=== PATIENT | female | born 1960 | race Caucasian/White ===

== ENCOUNTER 2017-11-26 16:00 | Outpatient (RCR) | payer BC, SELFPAY ==
--- NOTE | 2017-11-13 09:02 | PTTR_ITS ---
DATE: 11/13/17 SUBJECTIVE: Pt states that she is considerably better but still feels weak at the ankle but she is at the point now that she is getting back on her feet. OBJECTIVE: Manual therapy: ([id number]). Pt placed in the supine position receiving gentle stretching to the gastroc with the knee extended and she is then placed and distracted through the talo crural joint with distraction while the ankle is held in 10* of plantar flexion. She is mobilized with medial and lateral glides of the calcaneus on the fixed talus to supply sub talar joint motion and then talar glides on a fixed ankle mortis with anterior and posterior direction. IASTM allowing myofascial release techniques through the posterior tibialis and also completed and Rock Taping supporting medial longitudinal arch as well as posterior tibialis facilitation. She tolerates tx well. Direct treatment time: 30 minutes Total treatment time: 30 minutes
--- NOTE | 2017-11-26 16:00 | PTTR_ITS ---
DATE: 11/26/17 SUBJECTIVE: Patient states she is progressively getting better. Still feels mildly weak through the ankle on the L side. Manual therapy: ([id number]). Patient placed in supine receiving gentle traction through the talocrural joint while held in 10 degrees of plantar flexion. She is then oscillated with light talar glides both posterior/ anterior to achieve greater articular motion to the talocrural joint. The subtalar joint then mobilized with medial and lateral glides of the calcaneus on a fixed talus, light stretching through the gastroc soleus complex with tension through the Achilles and light stretching of the posterior tibialis also performed. She is then taped with kinesiotape application supporting medial, longitudinal arch and facilitation technique through the posterior tibialis. Patient tolerates treatment well. Direct treatment time: 20 mins Total treatment time: 20 mins DIONY/dl
== END 2017-12-07 23:59 | disposition home or self-care (01) ==
LOC: PT 16:00
PROVIDERS: PCP Family Medicine; Referring Provider Orthopaedic Surgery Foot and Ankle Surgery; Visit Provider Orthopaedic Surgery Foot and Ankle Surgery
DX: M76.822 Posterior tibial tendinitis, left leg (principal)
CPT/HCPCS: 97140

== ENCOUNTER 2018-06-06 08:24 | Outpatient (REF) | payer BC, SELFPAY ==
[2018-06-06 12:16] LABS: Mean Corp. HGB Concentration 31.7 g/dL (32.0-36.0); Mean Corpuscular Hemoglobin 28.3 pg (27.0-33.0); Mean Corpuscular Volume 89.1 fL (80-95); Mean Platelet Volume 10.2 fL (8.0-11.0); Platelet Count 185 x1000/uL (130-400); RBC Distribution Width 13.7 % (11.7-14.6); White Blood Cell Count 5.19 k/cumm (4.4-10.8)
[2018-06-06 12:35] LABS: ALT 17 U/L (12-78); AST 16 U/L (15-37); Albumin 3.5 g/dL (3.4-5.0); Alkaline Phosphatase 90 U/L (46-116); Anion Gap 6.2 mmol/L (3-11); BUN 21 mg/dL (7-18); Bilirubin, Total 0.4 mg/dL (0.2-1.0); CO2 31.8 mmol/L (21.0-32.0); CREATININE 0.87 mg/dL (0.55-1.02); Calcium 8.6 mg/dL (8.5-10.1); Chloride 106 mmol/L (98-107); Glucose 104 mg/dL (70-100); Sodium 144 mmol/L (136-145); TSH (W/Ref FT4) 1.94 uIU/mL (0.358-3.74); Total Protein 6.4 g/dL (6.4-8.2)
[2018-06-06 13:27] LABS: Hemoglobin A1C 6.2 % (4.5-6.2)
== END 2018-06-06 08:44 ==
LOC: NCHCN 08:24
PROVIDERS: PCP Family Medicine; Visit Provider Family Medicine
DX: I10 Essential (primary) hypertension (principal); R73.01 Impaired fasting glucose; E66.9 Obesity, unspecified
CPT/HCPCS: 80053; 85027; 83036; 84443

== ENCOUNTER 2019-01-07 00:40 | Outpatient (CLI) | payer BC, SELFPAY ==
--- NOTE | 2019-01-07 08:29 | DI.MAMMO_ITS ---
EXAM: MG MAMMO SCREENING CLINICAL HISTORY: SCREENING, Z12.31, PREVENTATIVE HEALTH CARE, Z00.00. TECHNIQUE: Bilateral full field digital CC and MLO mammographic images were obtained with 3D tomosyn thesis and utilizing computer aided detection (CAD). COMPARISON: There are multiple priors with the most recent from 12/19/2016. FINDINGS: Masses/Architectural Distortion: None seen. Microcalcifications: No suspicious pleomorphic-type are seen. IMPRESSION: 1. No significant interval change with no specific features of malignancy noted. 2. Unless there is more urgent need, screening mammography is recommended, as per [employer] guidelines. ACR BI-RAD Category- 1 Negative Breast Density - Category B - Scattered areas of fibroglandular density A negative radiographic report should not delay biopsy if a dominant or clinically suspicious mass is present. Up to ten percent of cancers are not identified on mammography. A negative report may reinforce clinical impression. Adenosis and dense breasts may obscure an underlying neoplasm. False positive reports average 6 to 10%.
== END 2019-01-07 01:00 ==
PROVIDERS: PCP Family Medicine; Visit Provider Family Medicine
DX: Z00.00 Encounter for general adult medical examination without abnormal findings (principal); Z12.31 Encounter for screening mammogram for malignant neoplasm of breast
CPT/HCPCS: 77063; 77067

== ENCOUNTER 2019-04-14 13:02 | Outpatient (REF) | payer BC, SELFPAY ==
[2019-04-14 14:17] LABS: Anion Gap 8.4 mmol/L (3-11); BUN 29 mg/dL (7-18); CO2 29.6 mmol/L (21.0-32.0); CREATININE 0.85 mg/dL (0.55-1.02); Calcium 8.4 mg/dL (8.5-10.1); Chloride 106 mmol/L (98-107); Glucose 100 mg/dL (74-106); Potassium 3.6 mmol/L (3.5-5.1); Sodium 144 mmol/L (136-145)
== END 2019-04-14 13:22 ==
LOC: NCHCN 13:02
PROVIDERS: PCP Family Medicine; Visit Provider Family Medicine
DX: I10 Essential (primary) hypertension (principal)
CPT/HCPCS: 80048

== ENCOUNTER 2019-06-04 13:47 | Outpatient (REF) | payer BC, SELFPAY ==
[2019-06-04 13:27] LABS: Anion Gap 8.3 mmol/L (3-11); BUN 26 mg/dL (7-18); CO2 29.7 mmol/L (21.0-32.0); CREATININE 0.95 mg/dL (0.55-1.02); Calcium 8.6 mg/dL (8.5-10.1); Chloride 107 mmol/L (98-107); Glucose 96 mg/dL (74-106); Potassium 4.9 mmol/L (3.5-5.1); Sodium 145 mmol/L (136-145)
[2019-06-04 13:37] LABS: Hemoglobin A1C 5.8 % (3.8-5.6)
== END 2019-06-04 14:07 ==
LOC: NCHCN 13:47
PROVIDERS: PCP Family Medicine; Visit Provider Family Medicine
DX: I10 Essential (primary) hypertension (principal); R73.03 Prediabetes
CPT/HCPCS: 80048; 83036

== ENCOUNTER 2019-09-08 01:30 | Outpatient (CLI) | payer BC, SELFPAY ==
--- NOTE | 2019-09-08 10:30 | DI.NM_ITS ---
APPROVED REPORT Exam: Exercise Treadmill Patient Location: Out-Patient Room/Bed: Stress Nurse: Brigitte Quiñones RN BMI: 43.26 Baseline Rhythm: Sinus Bradycardia, Borderline low voltage, extremity leads. Indications: Patient reports occasional left chest discomfort, heart palpitations, difficulty catchin g her breath, left neck pressure???not all at once???for the past year. Patient is a poor historian. Medical History Medical History: GERD, Restless legs, Obesity. Cardiac Medications: Lisinopril, Hydrochlorothiazide. Allergies: Penicillin. Previous Cardiac Procedures: None Pretest Chest Pain Characteristics: None Exercise History: Sedentary Physical Disabilities: None Lung Sounds: Clear to auscultation Heart Sounds: Regular Stress Test Details Test: Exercise stress testing was performed using a Marino protocol. Nuclear Acquisition: Rest Tc-99m/Stress Tc-99m 1 day Rest Isotope: Tc-99m Sestamibi. Dose: 12.2 Date: 09/08/2019 Injection Time: 1045 Stress Isotope: Tc-99m Sestamibi. Dose: 37.1 Date: 09/08/2019 Injection Time: 1305 HR Resting HR Supine: 52 bpm Max Heart Rate (APMHR): 161 bpm Resting HR Standin bpm Target HR (85% APMHR): 136 bpm Max HR Achieved: 158 bpm % of APMHR: 98 HR response to stress: Normal HR response to stress BP Resting BP Supine: 128/70 mmHg Resting BP Standin/86 mmHg Max BP: 160/88 mmHg BP response to stress: Normal blood pressure response to stress. ECG Resting ECG: Sinus Bradycardia, Borderline low voltage, extremity leads. Ectopy: Occasional PVC's with maximal exercise and immediate recovery. Rare PAC's Stress ECG: Sinus Tachycardia ST Change: No significant St segment changes noted. Clinical Reason for Termination: Fatigue, Dyspnea Stress Symptoms: None reported per patient. Exercise duration: 6 min12 sec Highest Stage Reached: Stage 3: 3.4 mph at 14% grade. Exercise capacity: 7.32 METs Functional Capacity: Average Capacity Stress ECG Conclusion 1. The patient exercised on the Marino protocol and completed a workload of 7.32 METS, limited by farhad herrera. There were no symptoms to suggest angina 2. Normal heart rate and blood pressure response to exercise. Patient achieved 98% of predicted hear t rate for age 3. Electrocardiographically the test was negative for myocardial ischemia 4. PVCs were noted at end exercise 5. Vinson treadmill score is 6, low probability Stress Test Summary STAGE Time (mins) Speed (mph) Grade (%) HR BP SYMPTOMS METS Supine 52 128/70 Standing 67 120/86 1 3 1.7 10 115 140/80 4.6 2 6 2.5 12 154 7 1 min recovery 146 160/88 3 min recovery 83 160/74 6 min recovery 81 132/70 9 min recovery 75 112/68 MPI Conclusion Normal myocardial perfusion without evidence of ischemia or infarction Calculated ejection fraction was 52% Radiologist Interpretation Radiologist agrees with Paint Sprayer Sandblaster's Interpretation. Radiologist Interpretation by: Amado Hammonds MD Interpretation Date/Time: 09/09/2019 13:18:32
== END 2019-09-08 01:50 ==
PROVIDERS: PCP Family Medicine; Visit Provider Nurse Practitioner Family
DX: R07.89 Other chest pain (principal); R00.2 Palpitations; R00.1 Bradycardia, unspecified; R53.83 Other fatigue; K21.9 Gastro-esophageal reflux disease without esophagitis
CPT/HCPCS: 78452; 93017

== ENCOUNTER 2019-09-08 08:15 | Outpatient (CLI) | payer BC, SELFPAY ==
[2019-09-09 18:24] LABS: COVID-19 RT-PCR UVMMC Result Negative (Negative)
== END 2019-09-08 08:35 ==
PROVIDERS: PCP Family Medicine; Visit Provider Family Medicine
DX: Z11.59 Encounter for screening for other viral diseases (principal)
CPT/HCPCS: U0003

== ENCOUNTER 2019-09-09 02:27 | Outpatient (CLI) | payer BC, SELFPAY ==
--- NOTE | 2019-09-09 | DI.US_ITS ---
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 Estimated ejection fraction is 55 to 60%. There are no segmental wall motion abnormalities. There is stage I diastolic dysfunction There is no chamber enlargement Aortic valve is mildly sclerotic without stenosis. There is trace aortic regurgitation Mitral valve is structurally normal. There is mild mitral regurgitation The pulmonic and tricuspid valves are structurally normal. There is trace physiologic pulmonic and t ricuspid regurgitation Wall motion Left Ventricle The left ventricle is normal size. The left ventricular systolic function is normal. The left ventric ular ejection fraction is within the normal range. There is normal left ventricular wall thickness. T here is normal LV segmental wall motion. Transmitral Doppler flow pattern suggests impaired LV relaxa tion. There is no ventricular septal defect visualized. LVEF is 58%. Right Ventricle The right ventricle is normal size. The right ventricular systolic function is normal. The RVSP is 24 .1 mmHg. Atria The left atrium size is normal. The right atrium size is normal. The interatrial septum is intact wit h no evidence for an atrial septal defect. Aortic Valve The Aortic valve is mildly sclerotic There is no aortic valvular stenosis. Trace aortic regurgitation . Mitral Valve The mitral valve is normal in structure. No evidence of mitral valve stenosis. Mild mitral regurgitat ion. Tricuspid Valve The tricuspid valve is normal in structure. There is no tricuspid valve stenosis. Trace tricuspid reg urgitation. Pulmonic Valve The pulmonary valve is normal in structure. There is no pulmonic valvular stenosis. Trace pulmonic re gurgitation. Great Vessels The aortic root is normal in size. The ascending aorta is normal in size. Ascending aorta is not well visualized. IVC is normal in size and collapses >50% with inspiration. Pericardium There is no pericardial effusion. There is no pleural effusion. 2D Dimensions IVSD d PLAX 0.92 cm F: 0.6-1.0 LV Vol A2C d MOD 80.6 mL LVPW d PLAX 0.92 cm F: 0.6 - 1.0 LV Vol A4C d MOD 105.4 mL LVID d PLAX 5.11 cm F: 3.8 - 5.2 LA vol/ BSA A2C s A-L 26.5 mL/m2 LVDs 3.40 cm F: 2.2 - 3.5 LA vol/ BSA A4C s A-L 34.8 mL/m2 Ao Root d 2.11 cm F: 2.7 - 3.3 LA Vol/ BSA Biplane s A-L 32.5 mL/m2 RA Area A4C 17.10 cm2 LA Area A4C s MOD 23.80 cm2 RA Vol/ BSA A4C s A-L 21.6 mL/m2 LA Area A2C s MOD 19.37 cm2 Ao Asc Diam d 3.09 cm F: 2.3 - 3.1 LV EF A4C MOD 59.1 % LV EF Teichholz 61.7 % LV EF A2C MOD 58.5 % LVEF (Tuttle's) 58.29 % F: 54 - 74 LV EF Biplane MOD 58.3 % LV Volume 67.98 mL F: 46 - 106 SV 54.58 mL LV Volume Index 30.76 mL/m2 F: 29 - 61 SV Index 24.68 mL/m2 LV Vol Biplane MOD 93.6 mL FS 33.35 % M-Mode TAPSE 2.75 cm (M/F) >1.7 LV Diastology MV E' medial 0.060 (>0.07 m/s) E/A Ratio 1.2 LV E/e MED 10.80 (<14) MV E Vmax 0.65 (0.4-1.3 m/s) MV E' lateral 0.089 (>0.1 m/s) MV A Vmax 0.55 (0.4-1.3 m/s) LV E/e LAT 7.25 (<14) MV E/A Ratio 1.11 MV E/E' medial 10.82 MV E/E' lateral 7.25 Aortic Valve LVOT Area 2.20 cm2 AoV Area Vmax 1.96 cm2 LVOT Vmax 1.44 m/s AoV Area/ BSA (Vmax) 0.88 cm2/m2 LVOT Mean Fran. 0.87 m/s GRACY Mean Fran. 1.68 cm2 LVOT Peak Grad 8.3 mmHg GRACY Mean Fran. Index 0.76 cm2/m2 LVOT Mean Grad 3.7 mmHg AR DT 3019 msec LVOT VTI 0.335 m AR PHT 876 msec LVOT Diam s 1.65 cm AoV Vmax 1.61 m/s Velocity Ratio 0.89 AoV Mean Fran. 1.14 m/s AoV Peak Grad 10.4 mmHg LVOT SV 73.65 mL AoV Mean Grad 5.7 mmHg AoV VTI 0.353 m AoV Area VTI 2.09 cm2 AoV Area/ BSA (VTI) 0.94 cm/m2 Mitral Valve MV DT 265 (160-240 msec) MV PHT 77 msec MV Area PHT 2.86 cm2 Pulmonary Valve PV Vmax 1.04 (0.5-1.5 m/s) RVOT Peak Gr. 1.96 mmHg PV Peak Grad 4.3 mmHg RVOT Mean Gr. 1.05 mmHg PV Mean Grad 2.1 mmHg RVOT VTI 0.186 m PV VTI 0.252 m RVOT Vmax 0.70 m/s Tricuspid Valve TR Peak Grad 21.1 mmHg TR Vmax 2.30 m/s RA Pressure 3.00 mmHg RVSP (TR) 24.1 mmHg
== END 2019-09-09 02:47 ==
PROVIDERS: PCP Family Medicine; Visit Provider Nurse Practitioner Family
DX: R06.09 Other forms of dyspnea (principal); R07.9 Chest pain, unspecified; R00.2 Palpitations; I35.8 Other nonrheumatic aortic valve disorders; I34.0 Nonrheumatic mitral (valve) insufficiency
CPT/HCPCS: 93306

== ENCOUNTER 2019-09-10 03:17 | Outpatient (CLI) | payer BC, SELFPAY ==
--- NOTE | 2019-09-11 12:29 | W.PFT ---
Date of service: 09/10/19 Time of Service: 10:40 Pulmonary Function Test Result Requesting Provider Dr. Porter Interpretation Spirometry: Shows no evidence of obstructive airways disease, no bronchodilator response Lung Volumes: No evidence of restriction Diffusion Capacity: Normal Airway Pressure: Normal Impression Normal pulmonary function study clinical correlation recommended Clinical Correlation therefore is recommended.
== END 2019-09-10 03:37 ==
PROVIDERS: PCP Family Medicine; Visit Provider Family Medicine
DX: R06.09 Other forms of dyspnea (principal)
CPT/HCPCS: 94060; 94726; 94729

== ENCOUNTER 2020-01-15 11:20 | Outpatient (REF) | payer BC, SELFPAY ==
[2020-01-15 19:13] LABS: Anion Gap 7.1 mmol/L (3-11); BUN 24 mg/dL (7-18); CO2 28.9 mmol/L (21.0-32.0); CREATININE 0.92 mg/dL (0.55-1.02); Calcium 8.6 mg/dL (8.5-10.1); Chloride 108 mmol/L (98-107); Glucose 90 mg/dL (74-106); Potassium 4.4 mmol/L (3.5-5.1); Sodium 144 mmol/L (136-145)
== END 2020-01-15 11:40 ==
LOC: NCHCN 11:20
PROVIDERS: PCP Family Medicine; Visit Provider Family Medicine
DX: I10 Essential (primary) hypertension (principal); R73.03 Prediabetes
CPT/HCPCS: 80048; 83036

== ENCOUNTER 2020-09-10 03:49 | Outpatient (CLI) | payer OTHER, SELFPAY ==
--- NOTE | 2020-09-10 | DI.MAMMO_ITS ---
Exam(s) MAMMO SCREENING EXAM: MAMMO SCREENING CLINICAL HISTORY: SCREENING, Z12.31 TECHNIQUE: Bilateral full field digital CC and MLO mammographic images were obtained with 3D tomosyn thesis and utilizing computer aided detection (CAD). COMPARISON: Available for comparison. FINDINGS: Masses/Architectural Distortion: None seen. Microcalcifications: No suspicious pleomorphic-type are seen. Skin Thickening/Nipple Retraction: None. IMPRESSION: 1. No significant interval change with no specific features of malignancy noted. 2. Unless there is more urgent need, screening mammography is recommended, as per [employer] guidelines. BI-RADS Category 1 - Negative Breast Density - Category B - Scattered areas of fibroglandular density Breast density category C or D implies that the patient has dense breast tissue. Dense breast tissue is very common and is not abnormal but dense breast tissue can make it harder to find cancer on a ma mmogram. Also, dense breast tissue may increase their breast cancer risk. This information about the result of the mammogram report was provided to the patient to raise their awareness. Use this report when you speak with the patient about their risks for breast cancer, which includes their family hist ory. At that time, you may recommend for more screening tests (Ultrasound or MRI) as they might be us eful based on their risk. A negative radiographic report should not delay biopsy if a dominant or clinically suspicious mass is present. Up to ten percent of cancers are not identified on mammography. A negative report may reinforce clinical impression. Adenosis and dense breasts may obscure an underlying neoplasm. False positive reports average 6 to 10%. Patient will receive a letter notifying them of these results.
== END 2020-09-10 04:09 ==
PROVIDERS: PCP Family Medicine; Visit Provider Family Medicine
DX: Z12.31 Encounter for screening mammogram for malignant neoplasm of breast (principal)
CPT/HCPCS: 77063; 77067

== ENCOUNTER 2020-11-01 09:26 | Outpatient (CLI) | payer OTHER, SELFPAY ==
--- NOTE | 2020-11-01 08:45 | DI.RAD_ITS ---
Exam(s) XR KNEE RT 3V AP,LAT,BAO EXAM: XR KNEE RT 3V AP,LAT,BAO CLINICAL HISTORY: knee pain. TECHNIQUE: 2D digital imaging was performed. COMPARISON: CR XR KNEE LT 3V AP,LAT,BAO from 11/01/2020 FINDINGS: There is no evidence of fracture or joint effusion. There are advanced tricompartmental degenerative changes. [id number] in the lateral compartment. Marginal osteophytes off all compartments. No o sseous lesions. Bone density normal. IMPRESSION: DATA REPOSITORY: RADIATION DOSE DELIVERED:
--- NOTE | 2020-11-01 08:45 | DI.RAD_ITS ---
Exam(s) XR KNEE LT 3V AP,LAT,BAO EXAM: XR KNEE LT 3V AP,LAT,BAO CLINICAL HISTORY: knee pain. TECHNIQUE: 2D digital imaging was performed. COMPARISON: No exams were available for comparison FINDINGS: There is a left knee prosthesis comprised of long stem femoral component and longer than conventional stem tibial component there is some a centric position of distal stem component of the tibial compon ent with thumb hypertrophic cortical changes in the lateral aspect of the tibia at this level of the proximal diaphysis. In addition, there is a suggestion of possible loosening of the tibial component prosthesis over its lateral aspect. IMPRESSION: DATA REPOSITORY: RADIATION DOSE DELIVERED:
== END 2020-11-01 09:27 | disposition home or self-care (01) ==
LOC: DIORS 09:26
PROVIDERS: PCP Family Medicine; Referring Provider Family Medicine; Visit Provider Physician Assistant
DX: M25.561 Pain in right knee (principal); M25.562 Pain in left knee
CPT/HCPCS: 73562

== ENCOUNTER 2021-03-11 09:46 | Outpatient (REF) | payer OTHER, SELFPAY ==
[2021-03-11 14:52] LABS: Anion Gap 9.6 mmol/L (3-11); BUN 21 mg/dL (7-18); CO2 29.4 mmol/L (21.0-32.0); Calcium 8.7 mg/dL (8.5-10.1); Chloride 103 mmol/L (98-107); Estimated GFR 56.56 (mL/min/1.73m2); Glucose 98 mg/dL (74-106); Potassium 4.1 mmol/L (3.5-5.1); Sodium 142 mmol/L (136-145)
[2021-03-11 15:13] LABS: Hemoglobin A1C 5.9 % (<5.7)
== END 2021-03-11 09:47 | disposition home or self-care (01) ==
LOC: NCHCN 09:46
PROVIDERS: PCP Family Medicine; Visit Provider Family Medicine
DX: I10 Essential (primary) hypertension (principal); R73.03 Prediabetes
CPT/HCPCS: 80048; 83036

== ENCOUNTER 2021-07-11 18:41 | Outpatient (REF) | payer OTHER, SELFPAY ==
[2021-07-11 16:53] LABS: Hemoglobin A1C 6.1 % (<5.7)
[2021-07-11 17:13] LABS: Calculated LDL 120 mg/dL (<100); Cholesterol 202 mg/dL (<200); HDL Cholesterol 50 mg/dL (40-60); Triglyceride 160 mg/dL (<150)
== END 2021-07-11 18:42 | disposition home or self-care (01) ==
LOC: NCHCN 18:41
PROVIDERS: PCP Family Medicine; Visit Provider Family Medicine
DX: R73.03 Prediabetes (principal); Z13.220 Encounter for screening for lipoid disorders
CPT/HCPCS: 80061; 83036

== ENCOUNTER 2021-08-23 15:36 | Outpatient (CLI) | payer OTHER, SELFPAY ==
[2021-08-23 12:14] LABS: CREATININE 0.9 mg/dL (0.55-1.02)
== END 2021-08-23 15:37 | disposition home or self-care (01) ==
LOC: LBO 15:39
PROVIDERS: PCP Family Medicine; Visit Provider Family Medicine
DX: Z13.89 Encounter for screening for other disorder (principal)
CPT/HCPCS: 36415; 82565

== ENCOUNTER 2021-11-18 00:56 | Outpatient (CLI) | payer OTHER, SELFPAY ==
[2021-11-18 11:51] LABS: Source Nasal/Nares
[2021-11-18 14:19] LABS: COVID-19 PCR Negative (Negative)
== END 2021-11-18 00:57 | disposition home or self-care (01) ==
LOC: LBO 00:56
PROVIDERS: PCP Family Medicine; Visit Provider Surgery
DX: Z20.822 Contact with and (suspected) exposure to COVID-19 (principal); Z01.818 Encounter for other preprocedural examination
CPT/HCPCS: 87635

== ENCOUNTER 2021-11-21 06:05 | Day surgery (SDC) | payer OTHER, SELFPAY ==
--- NOTE | 2021-11-21 06:13 | W.COLOREPORT ---
Colonoscopy Report Date of procedure: 11/21/21 Pre-op diagnosis general: Colon Cancer Screening Post-op diagnosis procedure note: other (polyps and diverticulosis) Procedure: Colonoscopy with polypectomy Surgeon: Monica Kelsey Anesthesia Type: General:No Airway Estimated blood loss (mL): 3 Pathology: other (cending polyp and sigmoid polyps x4) Complications: None Disposition: same day Indications: Mrs Hunt is a pleasant 61 year old here to discuss a screening colonoscopy. She has no family hx. She does have a hx of polyps in 2018.? Risks, benefits and complications have been reviewed. Complications include but are not limited to bleeding, pain, perforation, missed small lesion/polyp, sore throat, aspiration and adverse reaction to the medications. Questions were entertained and answered to their satisfaction and they wished to proceed. No guarantees were given or implied. Prep: Miralax/Dulcolax Procedure Start Time: 07:29 Procedure End Time: 07:56 Retraction Time: 14 minutes Findings: 5 small polyps most likely hyperplastic Procedure Description: After informed consent was obtained the patient was taken to the procedure room and placed in a left decubitous position. Monitors were applied and a time out was done. The patients name, date of , procedure, allergies to medications and metal in their body was reviewed. The patient was then sedated. Once sedated and comfortable a rectal exam was done. External exam was normal. Internal exam revealed a normal sphincter tone and no palpable masses. The scope was then introduced and retro-flexed. No internal hemorrhoids, polyps or masses were identified on retro-flexion. The scope was then advanced to the cecum without difficulty. The ileocecal vlave and appendiceal orifice were identified. The prep was good. The scope was then slowly retracted over 14 minutes back into the rectum. Polyps were removed with cold forceps in the ascending colon x1 and sigmoid colon x4. There was moderate sigmoid diverticulosis noted. The scope was removed and the patient was woken up and taken back to Same day surgery in stable condition. The patient tolerated the procedure well and there were no immediate complications.
--- NOTE | 2021-11-21 06:14 | W.PM.DSUDISC ---
Discharge Plan Disposition Patient Disposition: HOME Condition: Good Discharge Details Reason For Visit: colonoscopy Attending Provider: Monica Kelsey Primary Care Provider: Tea Porter Home Meds and New Rx's Prescriptions: Continued darifenacin 7.5 mg tablet extended release 24 hr 7.5 mg PO DAILY lisinopril 10 mg tablet 10 mg PO DAILY metformin 500 mg tablet 1,000 mg PO DAILY ropinirole 1 mg tablet 1 mg PO QHS Rx Instructions: administer 1-3 hours before bedtime vitamin B complex [B Complex-Vitamin B12] Tablet 1 tab PO DAILY omega 6-zmu-nuj-fish oil [Fish Oil] 300-1,000 mg capsule 1 cap PO DAILY Digestive Advantage Advanced 10 billion cell capsule 10 cell PO DAILY multivitamin Tablet 1 tab PO DAILY ascorbic acid (vitamin C) 500 mg tablet 500 mg PO DAILY calcium carbonate [Calcium 500] 500 mg calcium (1,250 mg) tablet,chewable 500 mg PO DAILY omeprazole 20 mg capsule,delayed release(DR/EC) 20 mg PO DAILY hydrochlorothiazide 25 MG tablet 25 mg PO DAILY ibuprofen [Advil] 200 MG tablet 200 mg PO PRN PRN cholecalciferol (vitamin D3) [Vitamin D3] 1,000 UNIT tablet,chewable 1,000 unit PO DAILY acetaminophen [Mapap Extra Strength] 500 MG tablet 1,000 mg PO PRN PRN Discontinued polyethylene glycol 3350 17 gram/dose powder 17 g PO ONCE Qty: 238 0RF Rx Instructions: To be taken as directed by prescriber's office for colonoscopy prep. bisacodyl [Dulcolax (bisacodyl)] 5 mg tablet,delayed release (DR/EC) 5 mg PO ONCE Qty: 4 0RF Rx Instructions: Take according to provider's instructions for colonoscopy prep. Discharge Instructions Instructions: Diverticulosis (DC), Colorectal Polyps (DC) Additional Instructions: Findings: 5 small polyps, most likely benign moderate diverticulosis Follow up: will depend on final pathology Please call if you develop: fevers >101.5 Nausea or Vomiting Abdominal pain that is not transient Rectal bleeding that is more then a tbsp A hard abdomen and inability to pass gas DAY SURGERY UNIT POST ENDOSCOPY INSTRUCTIONS Instructions for everyone who is given Anesthesia: For your safety, please do the following for the next 24 Hours: a. Do not drive or operate dangerous equipment b. Do not drink alcohol beverages or use any recreational drugs for the first 24 hours or while taking pain medications. The medications in your body may have a reaction that can be dangerous. c. Do not make any important decisions or sign any important papers 1. Generally there are no restrictions on your activity after a day or so has gone by, but you may feel a bit fatigued for a few days. 2. After you arrive home you may have a light meal and return to a normal diet as you can tolerate it without feeling sick to your stomach. 3. After surgery, you may feel pain or discomfort. This should be only transient, but if it persists please contact your doctor. 4. If there are any questions regarding the findings of your procedure, please feel free to contact your doctor. 6. If you are unable to contact your doctor with a problem, contact the hospital at [phone]. 7. Continue all your regular medications unless directed otherwise. I understand the above instructions and have no questions. Signature of Patient or Responsible Adult Escort Date/Time Name of Responsible Adult Escort Signature of Nurse Date/Time Activity:: Activity as Tolerated Diet:: high fiber diet Discharge Orders Discharge Orders: Discharge Order (Routine); Ordered 11/21/21 Ordered By: Monica Kelsey
[2021-11-21 06:16] VITALS: BP 148/93; PULSE 66; RESP 19; TEMP 36.5; O2SAT 100
[2021-11-21] MEDS: Lactated Ringers 1,000 ML 80 ML IV (06:41)
--- NOTE | 2021-11-21 07:14 | W.ANESPRE ---
General Info Date of Service Date Performed: 11/21/21 Height: 5 ft 4 in Weight: 118.3 kg Body Mass Index (BMI): 44.7 Surgical Procedure: Operation Date: 11/21/21 07:35 Proposed Procedure Side Surgeon hector Kelsey MD Meds Allergies and Home Medications Allergies Allergy/AdvReac Type Severity Reaction Status Date / Time Penicillins Allergy Intermediate Hives Verified 11/21/21 06:26 topiramate [From Topamax] AdvReac Unknown Per pt. Verified 11/21/21 06:26 states made me depressed Home Medication Medication Instructions Recorded hydrochlorothiazide 25 mg tablet 25 mg PO DAILY 07/31/12 cholecalciferol (vitamin D3) 25 1,000 unit PO DAILY 08/02/12 mcg (1,000 unit) chewable tablet (Vitamin D3) ibuprofen 200 mg tablet (Advil) 200 mg PO PRN PRN 08/02/12 acetaminophen 500 mg tablet (Mapap 1,000 mg PO PRN PRN 11/19/17 Extra Strength) L.acidoph, paracasei,B. lactis 10 10 cell PO DAILY 07/19/21 billion cell capsule (Digestive Advantage Advanced Probiotic) ascorbic acid (vitamin C) 500 mg 500 mg PO DAILY 07/19/21 tablet calcium carbonate 500 mg calcium 500 mg PO DAILY 07/19/21 (1,250 mg) chewable tablet (Calcium 500) lisinopril 10 mg tablet 10 mg PO DAILY 07/19/21 metformin 500 mg tablet 1,000 mg PO DAILY 07/19/21 multivitamin 1 tab PO DAILY 07/19/21 omega 1-vsr-vxv-fish oil 300 1 cap PO DAILY 07/19/21 mg-1,000 mg capsule (Fish Oil) omeprazole 20 mg capsule,delayed 20 mg PO DAILY 07/19/21 release ropinirole 1 mg tablet 1 mg PO QHS 07/19/21 vitamin B complex (B 1 tab PO DAILY 07/19/21 Complex-Vitamin B12 tablet) darifenacin 7.5 mg tablet,extended 7.5 mg PO DAILY 10/28/21 release 24 hr bisacodyl 5 mg tablet,delayed 5 mg PO ONCE #4 tabs 11/04/21 release (Dulcolax (bisacodyl)) polyethylene glycol 3350 17 17 g PO ONCE #238 grams 07/29/22 gram/dose oral powder Current Visit Medications: Current Medications Generic Name Dose Route Start Last Admin Trade Name Twanq PRN Reason Stop Dose Admin Hyoscyamine Sulfate 0.125 mg 11/21/21 06:14 Hyoscyamine 0.125 Mg Sl/Oral/Chew SL DIRECTED PRN Ringer's Solution 1,000 mls @ 80 mls/hr 11/21/21 06:00 11/21/21 06:41 IV 12/18/21 23:59 80 mls/hr INFUSION ELENA Administration IV Miscellaneous Supplies 1 each 11/21/21 06:00 Iv Access IV 12/18/21 23:59 DIRECTED ELENA Ondansetron HCl 4 mg 11/21/21 06:14 Ondansetron 4 Mg/2 Ml Vial IVP Q4H PRN PRN Nausea / Vomiting Sodium Chloride 0 ml 11/21/21 06:00 Normal Saline Flush 10 Ml Syr IV 12/18/21 23:59 PRN PRN Sodium Chloride 0 ml 11/21/21 06:00 Normal Saline 10 Ml Vial IJ 12/18/21 23:59 DIRECTED PRN Sterile Water 0 ml 11/21/21 06:00 Water,Injection,Sterile 10 Ml Vial IJ 12/18/21 23:59 DIRECTED PRN PFSH Active Problems Active Problems: Problem Status Onset Code Screening for colon cancer Z12.11 Serrated adenoma of colon D12.6 Hyperplastic colon polyp K63.5 Medical History Medical History Adenomatous colon polyp Depression Dyspareunia Ganglion cyst Generalized anxiety disorder GERD (gastroesophageal reflux disease) H/O tinnitus History of revision of total replacement of left knee joint (2004) HTN (hypertension) 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 Obesity Palpitations Panic attack Prediabetes Primary osteoarthritis of right knee Urge incontinence Varicose veins of both lower extremities Vitamin D deficiency Surgical History Surgical History (Updated 11/21/21 @ 06:26 by Twila Brooks RN) History of total knee arthroplasty Hx of foot surgery Tobacco Smoking/Tobacco Use Status: Former Tobacco Use Alcohol Alcohol Intake: current Alcohol intake frequency: holidays/special occasions only Substance Use Substance use: Never Substance use type: does not use Vital Signs and Lab Results Vital Signs Most Recent Vital Signs in EMR: Most Recent Vital Signs Temp Pulse Resp BP Pulse Ox 36.5 C 66 19 148/93 H 100 11/21/21 06:16 11/21/21 06:16 11/21/21 06:16 11/21/21 06:16 11/21/21 06:16 Lab Results Blood Type / Crossmatch: No Data to Display Complete Blood Count: No Data to Display Complete Metabolic Panel: No Data to Display Liver Function Panel: No Data to Display Coagulation Panel: No Data to Display Cardiac Panel: No Data to Display Arterial Blood Gas: No Data to Display Venous Blood Gas: No Data to Display Pancreas Panel: No Data to Display Thyroid Panel: No Data to Display Infectious Disease: Coronavirus (COVID-19)(PCR) Negative (Negative) 11/18/21 08:00 Coronavirus 2019 Source Nasal/Nares 11/18/21 08:00 Blood Cultures: No Data to Display Toxicology Panel: No Data to Display Imaging and Studies Imaging and Studies Study information below may be from another EMR and interpreted by another provider. Please see original notes in EMR for more complete details. Stress Test Summary: Stress ECG Conclusion 1. The patient exercised on the [place] protocol and completed a workload of 7.32 METS, limited by fatigue. There were no symptoms to suggest angina 2. Normal heart rate and blood pressure response to exercise. Patient achieved 98% of predicted heart rate for age 3. Electrocardiographically the test was negative for myocardial ischemia 4. PVCs were noted at end exercise 5. Vinson treadmill score is 6, low probability 09/08/19 Echocardiogram Summary: Conclusion Normal left ventricular wall thickness and chamber size. Estimated ejection fraction is 55 to 60%. There are no segmental wall motion abnormalities. There is stage I diastolic dysfunction There is no chamber enlargement Aortic valve is mildly sclerotic without stenosis. There is trace aortic regurgitation Mitral valve is structurally normal. There is mild mitral regurgitation The pulmonic and tricuspid valves are structurally normal. There is trace physiologic pulmonic and tricuspid regurgitation 09/09/19 Pulmonary Function Summary: Impression Normal pulmonary function study clinical correlation recommended Clinical Correlation therefore is recommended. 09/11/19 Anesthesia Assessment and Plan Anesthesia History Personal History: No History of Anesthesia Complications Family History: No Family History of Anesthesia Complications Exercise Tolerance Exercise Tolerance: Metabolic Equivalents>4 Pertinent Negatives Pertinent Negatives: No Symptoms of GERD (Controlled with meds), No Major Cardiovascular Symptoms or Complaints, No Major Pulmonary Symptoms or Complaints and No History of CVA/TIA Cardiac & Pulmonary Exam Cardiac Exam: Normal S1/S2 Heart Sounds Pulmonary Exam: Clear Bilateral Breath Sounds Implantable Cardiac Device Does patient have a Pacemaker or an ICD?: No Airway Exam Known Difficult Airway: No Mallampati Class: 2 Mouth Opening: Normal (> 3cm) Thyromental Distance: Greater than 3 cm Neck Range of Motion: Full ROM Neck Circumference: Thick Teeth Condition: Normal Dentition ASA Classification ASA Score: ASA 3 Emergency Case?: No NPO Status NPO Status: NPO Clears >2 hours, Solids >8 hours Anesthesia Plan Resuscitation Status: Full Code Anesthesia Technique: General Anesthesia Airway Planned: Natural Airway Monitors Used: Standard Monitors
[2021-11-21 07:19] VITALS: BMI 44.7
--- NOTE | 2021-11-21 08:00 | BOWEL_PTH ---
PATIENT: Trang Hunt LOC: [facility] U#:[id number] AGE/SX: 61/F ROOM: RE11/21/[address]: Monica Kelsey MD : 1960 BED: DIS: 11/21/2021 SPEC #: [id number] RECD: 11/21/21 08:40 STATUS: MC REQ #: [id number] NINA: 11/21/21 08:[address]: Monica Kelsey DEPT: Surgical Specimen RECD BY: Francine Palma ENTERED: 11/21/21 08:42 SP TYPE: Bowel OTHR DR: Tea Porter Tissues: 1 - BIOPSY BOWEL 2 - BIOPSY BOWEL Procedures: GROSS AND MICRO LEVEL 4 Comments: [id number]
[2021-11-21 08:06] VITALS: BP 111/79; PULSE 62; RESP 17; TEMP 36.5; O2SAT 97
--- NOTE | 2021-11-21 08:23 | W.ANESPOSTOP ---
Postoperative Evaluation Date, Time and Location Date Performed: 11/21/21 Time Performed: 08:07 Patient Location: Day Surgery Unit Vital Signs Most Recent Imported Vital Signs: Most Recent Vital Signs Temp Pulse Resp BP Pulse Ox 36.5 C 62 17 111/79 97 11/21/21 08:06 11/21/21 08:06 11/21/21 08:06 11/21/21 08:06 11/21/21 08:06 Pain Score Most Recent Pain Score: Most Recent Pain Score Pain Level 0 11/21/21 06:16 Assessment Mental Status: Awake (Alert & Oriented to Patient Baseline) Airway and Respiratory Function: Patent airway with normal (patient baseline) respiratory exam Cardiovascular Function: Hemodynamically Stable Hydration Status: Adequately Hydrated Nausea & Vomiting: No Nausea or Vomiting Pain: Pt. Denies Any Pain Peripheral Nerve Block: Patient did not receive a nerve block
[2021-11-21 08:28] VITALS: BP 127/75; PULSE 61; RESP 18; TEMP 36.7; O2SAT 96
== END 2021-11-21 09:01 | disposition home or self-care (01) ==
PROVIDERS: PCP Family Medicine; Visit Provider Surgery
PROC: 0DJD8ZZ Inspection of Lower Intestinal Tract, Via Natural or Artificial Opening Endoscopic (ICD-10-PCS; CPT 45378; principal; 2021-11-21 07:30)
DX: Z12.11 Encounter for screening for malignant neoplasm of colon (principal); K21.9 Gastro-esophageal reflux disease without esophagitis; I10 Essential (primary) hypertension; K63.5 Polyp of colon; K57.30 Diverticulosis of large intestine without perforation or abscess without bleeding
CPT/HCPCS: 45380; 88305

== ENCOUNTER 2021-12-28 14:22 | Outpatient (CLI) | payer OTHER, SELFPAY ==
--- NOTE | 2021-12-28 14:15 | DI.RAD_ITS ---
Exam(s) XR SHOULDER RT COMPLETE 2+V EXAM: XR SHOULDER RT COMPLETE 2+V CLINICAL HISTORY: right shoulder pain. TECHNIQUE: 2D digital imaging was performed. COMPARISON: No exams were available for comparison FINDINGS: Two views: No evidence of fracture or dislocation nor joint space narrowing. Small osteophyte noted on the infe rior articular surface of the humeral head. No osteophytes on the osseous glenoid side. Subacromial space height is lower normal. No calcifications therein. Degenerative subarticular cysts are seen in the greater tuberosity on the lateral aspect of the humeral head. IMPRESSION: Degenerative changes as described above. DATA REPOSITORY: RADIATION DOSE DELIVERED:
== END 2021-12-28 14:23 | disposition home or self-care (01) ==
LOC: DIORS 14:22
PROVIDERS: PCP Family Medicine; Referring Provider Family Medicine; Visit Provider Student in an Organized Health Care Education/Training Program
DX: M25.511 Pain in right shoulder (principal); M25.711 Osteophyte, right shoulder; M85.611 Other cyst of bone, right shoulder
CPT/HCPCS: 73030

== ENCOUNTER → 2022-01-20 00:58 | Outpatient (CLI) | payer OTHER, SELFPAY ==
--- NOTE | 2022-01-20 06:45 | DI.MRI_ITS ---
Exam(s) MR UPPER JOINT RT WO EXAM: MR UPPER JOINT RT WO CLINICAL HISTORY: traumatic pain weakness S46.011A STRAIN RT SHOULDER. TECHNIQUE: Multiplanar multisequence MRI was performed. COMPARISON: CR XR SHOULDER RT COMPLETE 2+V from 12/28/2021 FINDINGS: BONES: There is no fracture or contusion pattern. Postsurgical changes are seen in the humeral head. JOINTS: Degenerative changes are seen at the acromioclavicular joint. There is superior subluxation of the humeral head relative to the glenoid. TENDONS: Supraspinatus: There is a complete tear of the supraspinatus tendon with retraction almost to the lev el of the glenohumeral joint. Infraspinatus: There is a full-thickness tear of the infraspinatus tendon. Retraction of the tendon is seen almost to the level of the glenohumeral joint. Subscapularis: Unremarkable. Teres Minor: Unremarkable. Biceps and Ballantine: Unremarkable. MUSCLES: Moderately severe fatty atrophy of both the supraspinatus and infraspinatus muscles is noted . The teres minor and subscapularis muscles are within normal limits. GLENOID LABRUM: Unremarkable on this noncontrast examination. SOFT TISSUES: Unremarkable. LIGAMENTS: Unremarkable. OTHER: There is fluid seen in the subacromial subdeltoid bursa consistent with a rotator cuff tear. IMPRESSION: 1. Complete tear of the supraspinatus tendon and a large full-thickness tear of the infraspinatus ten don with retraction almost to the level of the glenohumeral joint. 2. Moderately severe fatty atrophy of both the infraspinatus and supraspinatus muscles. 3. Degenerative changes of the AC joint. Postsurgical changes in the shoulder. 4. Superior subluxation of the humeral head consistent with a rotator cuff tear. DATA REPOSITORY:
== END ==
PROVIDERS: PCP Family Medicine; Visit Provider Student in an Organized Health Care Education/Training Program
DX: S46.011A Strain of muscle(s) and tendon(s) of the rotator cuff of right shoulder, initial encounter (principal); M19.011 Primary osteoarthritis, right shoulder; X58.XXXA Exposure to other specified factors, initial encounter
CPT/HCPCS: 73221

== ENCOUNTER 2022-06-01 09:19 | Outpatient (CLI) | payer OTHER, SELFPAY ==
--- NOTE | 2022-06-01 09:00 | DI.RAD_ITS ---
Exam(s) XR KNEE RT 1V XR STANDING ALIGNMENT EXAM: XR STANDING ALIGNMENT and XR knee RT 1 V CLINICAL HISTORY: TKA planning. TECHNIQUE: 2D digital imaging was performed. Five images were obtained. COMPARISON: CR XR KNEE LT 3V AP,LAT,BAO from 11/01/2020 CR XR KNEE RT 3V AP,LAT,BAO from 11/01/2020 FINDINGS: BONES: The hips are well maintained. There again seen findings of a left total knee replacement whic h appears unremarkable. Moderately severe degenerative changes are seen in the right knee with trico mpartment joint space narrowing and periarticular spurring. No joint effusion is seen. The ankles a re well maintained.There is no significant leg length discrepancy. SOFT TISSUE: Normal. IMPRESSION: Moderately severe osteoarthritis of the right knee. DATA REPOSITORY: RADIATION DOSE DELIVERED:
== END 2022-06-01 09:20 | disposition home or self-care (01) ==
LOC: DIORS 09:19
PROVIDERS: PCP Family Medicine; Referring Provider Family Medicine; Visit Provider Physician Assistant
DX: M25.561 Pain in right knee (principal); M17.11 Unilateral primary osteoarthritis, right knee; Z96.652 Presence of left artificial knee joint
CPT/HCPCS: 73560; 77073

== ENCOUNTER 2022-10-05 04:01 | Outpatient (CLI) | payer OTHER, SELFPAY ==
[2022-10-05 14:26] LABS: HCT 39.8 % (36.0-46.0); HGB 12.8 g/dL (11.2-15.7); MCH 28.6 pg (27.0-33.0); MCHC 32.2 % (32.0-36.0); MCV 89 fL (80-95); Platelet Count 196 10^3/uL (130-400); RBC 4.48 10^6/uL (3.93-5.22); RDW 13.2 % (11.7-14.6); RDW-SD 43.2 fL; WBC 5.89 10^3/uL (4.4-10.8)
[2022-10-05 15:24] LABS: Anion Gap 8.6 mmol/L (3-11); BUN 18 mg/dL (7-18); CO2 29.4 mmol/L (21.0-32.0); CREATININE 0.9 mg/dL (0.55-1.02); Calcium 8.7 mg/dL (8.5-10.1); Chloride 103 mmol/L (98-107); Estimated GFR 72.28 (mL/min/1.73m2); Glucose 93 mg/dL (74-106); Potassium 3.8 mmol/L (3.5-5.1); Sodium 141 mmol/L (136-145)
== END 2022-10-05 04:02 | disposition home or self-care (01) ==
LOC: LBO 04:01
PROVIDERS: PCP Family Medicine; Visit Provider Student in an Organized Health Care Education/Training Program
DX: M17.11 Unilateral primary osteoarthritis, right knee (principal); Z01.818 Encounter for other preprocedural examination
CPT/HCPCS: 36415; 80048; 85027

== ENCOUNTER 2022-10-18 14:37 | Observation (INO) | payer OTHER, SELFPAY ==
[2022-10-18] VITALS (22 sets, daily range): BP systolic 88–147; BP diastolic 54–95; PULSE 59–89; RESP 12–20; TEMP 35.6–36.7; O2SAT 93–100; BMI 43.9
[2022-10-18] MEDS: Gabapentin 300 MG CAP PO ×2 (07:09→21:46)
[2022-10-18] MEDS: Acetaminophen 500 MG TAB 1000 MG PO ×2 (07:09→20:50)
[2022-10-18] MEDS: Celecoxib 200 MG CAP 400 MG PO (07:09)
[2022-10-18] MEDS: Lactated Ringers 1,000 ML 80 ML IV ×2 (07:23→09:42)
--- NOTE | 2022-10-18 07:33 | W.ANESPRE ---
General Info Date of Service Date Performed: 10/18/22 Height: 5 ft 4 in Weight: 116.2 kg Body Mass Index (BMI): 43.9 Surgical Procedure: Operation Date: 10/18/22 08:40 Proposed Procedure Side Surgeon p Knee Total Arthroplasty, Cementless CR Right Cj Stiles MD Actual Procedure Side Surgeon p Knee Total Arthroplasty, Cementless CR Right Cj Stiles MD Pre-Op Diagnosis Post-Op Diagnosis OSTEOARTHRITIS RIGHT KNEE Meds Allergies and Home Medications Allergies Allergy/AdvReac Type Severity Reaction Status Date / Time Penicillins Allergy Intermediate Hives Verified 10/18/22 07:04 topiramate [From Topamax] AdvReac Unknown Per pt. Verified 10/18/22 07:04 states made me depressed Home Medication Medication Instructions Recorded hydrochlorothiazide 25 mg tablet 25 mg PO DAILY 07/31/12 cholecalciferol (vitamin D3) 25 1,000 unit PO DAILY 08/02/12 mcg (1,000 unit) chewable tablet (Vitamin D3) L.acidoph, paracasei,B. lactis 10 10 cell PO DAILY 07/19/21 billion cell capsule (Digestive Advantage Advanced Probiotic) ascorbic acid (vitamin C) 500 mg 500 mg PO DAILY 07/19/21 tablet calcium carbonate 500 mg calcium 500 mg PO DAILY 07/19/21 (1,250 mg) chewable tablet (Calcium 500) lisinopril 10 mg tablet 10 mg PO DAILY 07/19/21 metformin 500 mg tablet 1,000 mg PO DAILY 07/19/21 multivitamin 1 tab PO DAILY 07/19/21 omega 2-uml-luw-fish oil 300 1 cap PO DAILY 07/19/21 mg-1,000 mg capsule (Fish Oil) omeprazole 20 mg capsule,delayed 20 mg PO DAILY 07/19/21 release ropinirole 1 mg tablet 1 mg PO QHS 07/19/21 vitamin B complex (B 1 tab PO DAILY 07/19/21 Complex-Vitamin B12 tablet) darifenacin 7.5 mg tablet,extended 15 mg PO DAILY 11/22/21 release 24 hr folic acid 1 mg tablet 1 mg PO DAILY 11/22/21 Current Visit Medications: Current Medications Generic Name Dose Route Start Last Admin Trade Name Freq PRN Reason Stop Dose Admin Acetaminophen 1,000 mg 10/18/22 06:00 10/18/22 07:09 Acetaminophen 500 Mg Tab PO 11/17/22 05:59 1,000 mg PREOP ELENA Administration Celecoxib 400 mg 10/18/22 06:00 10/18/22 07:09 Celecoxib 200 Mg Cap PO 11/17/22 05:59 400 mg PREOP ELENA Administration Gabapentin 300 mg 10/18/22 06:00 10/18/22 07:09 Gabapentin 300 Mg Cap PO 11/17/22 05:59 300 mg PREOP ELENA Administration Tranexamic Acid 1,000 mg/ 60 mls @ 360 mls/hr 10/18/22 06:00 Sodium Chloride IVPB 11/17/22 05:59 PREOP ELENA Ringer's Solution 1,000 mls @ 80 mls/hr 10/18/22 06:00 10/18/22 07:23 IV 11/16/22 23:59 80 mls/hr INFUSION ELENA Administration Cefazolin Sodium 3,000 mg/ 100 mls @ 200 mls/hr 10/18/22 06:00 Sodium Chloride IVPB 10/18/22 18:00 PREOP ELENA IV Miscellaneous Supplies 1 each 10/18/22 06:00 Iv Access IV 11/16/22 23:59 DIRECTED ELENA Sodium Chloride 0 ml 10/18/22 06:00 Normal Saline Flush 10 Ml Syr IV 11/16/22 23:59 PRN PRN Sodium Chloride 0 ml 10/18/22 06:00 Normal Saline 10 Ml Vial IJ 11/16/22 23:59 DIRECTED PRN Sterile Water 0 ml 10/18/22 06:00 Water,Injection,Sterile 10 Ml Vial IJ 11/16/22 23:59 DIRECTED PRN PFSH Active Problems Active Problems: Problem Status Onset Code Primary osteoarthritis of right knee M17.11 Screening for colon cancer Z12.11 Serrated adenoma of colon D12.6 Hyperplastic colon polyp K63.5 Rotator cuff tear arthropathy of right shoulder M75.101, M12.811 Medical History Medical History Adenomatous colon polyp Depression Dyspareunia Ganglion cyst Generalized anxiety disorder GERD (gastroesophageal reflux disease) H/O tinnitus History of revision of total replacement of left knee joint (2004) HTN (hypertension) 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 Obesity Palpitations Panic attack Prediabetes Thyroid nodule Traumatic tear of right rotator cuff Urge incontinence Varicose veins of both lower extremities Vitamin D deficiency Surgical History Surgical History History of colonoscopy (~11/2021) History of total knee arthroplasty (L) Hx of foot surgery Tobacco Smoking/Tobacco Use Status: Former Tobacco Use Alcohol Alcohol Intake: current Alcohol intake frequency: holidays/special occasions only Substance Use Substance use: Never Substance use type: does not use Vital Signs and Lab Results Vital Signs Most Recent Vital Signs in EMR: Most Recent Vital Signs Temp Pulse Resp BP Pulse Ox 36.7 C 68 16 131/95 H 97 10/18/22 06:54 10/18/22 06:54 10/18/22 06:54 10/18/22 06:54 10/18/22 06:54 Lab Results Blood Type / Crossmatch: No Data to Display Complete Blood Count: White Blood Count 5.89 10^3/uL (4.4-10.8) 10/05/22 14:20 Red Blood Count 4.48 10^6/uL (3.93-5.22) 10/05/22 14:20 Hemoglobin 12.8 g/dL (11.2-15.7) 10/05/22 14:20 Hematocrit 39.8 % (36.0-46.0) 10/05/22 14:20 Platelet Count 196 10^3/uL (130-400) 10/05/22 14:20 Complete Metabolic Panel: Sodium 141 mmol/L (136-145) 10/05/22 14:20 Potassium 3.8 mmol/L (3.5-5.1) 10/05/22 14:20 Chloride 103 mmol/L (98-107) 10/05/22 14:20 Carbon Dioxide 29.4 mmol/L (21.0-32.0) 10/05/22 14:20 BUN 18 mg/dL (7-18) 10/05/22 14:20 Creatinine 0.9 mg/dL (0.55-1.02) 10/05/22 14:20 Est GFR (CKD-EPI 2020) 72.28 (mL/min/1.73m2) 10/05/22 14:20 Calcium 8.7 mg/dL (8.5-10.1) 10/05/22 14:20 Glucose 93 mg/dL (74-106) 10/05/22 14:20 Liver Function Panel: No Data to Display Coagulation Panel: No Data to Display Cardiac Panel: No Data to Display Arterial Blood Gas: No Data to Display Venous Blood Gas: No Data to Display Pancreas Panel: No Data to Display Thyroid Panel: No Data to Display Infectious Disease: No Data to Display Blood Cultures: No Data to Display Toxicology Panel: No Data to Display Imaging and Studies Imaging and Studies Study information below may be from another EMR and interpreted by another provider. Please see original notes in EMR for more complete details. Stress Test Summary: Stress ECG Conclusion 1. The patient exercised on the [place] protocol and completed a workload of 7.32 METS, limited by fatigue. There were no symptoms to suggest angina 2. Normal heart rate and blood pressure response to exercise. Patient achieved 98% of predicted heart rate for age 3. Electrocardiographically the test was negative for myocardial ischemia 4. PVCs were noted at end exercise 5. Vinson treadmill score is 6, low probability 09/08/19 Echocardiogram Summary: Conclusion Normal left ventricular wall thickness and chamber size. Estimated ejection fraction is 55 to 60%. There are no segmental wall motion abnormalities. There is stage I diastolic dysfunction There is no chamber enlargement Aortic valve is mildly sclerotic without stenosis. There is trace aortic regurgitation Mitral valve is structurally normal. There is mild mitral regurgitation The pulmonic and tricuspid valves are structurally normal. There is trace physiologic pulmonic and tricuspid regurgitation 09/09/19 Pulmonary Function Summary: Impression Normal pulmonary function study clinical correlation recommended Clinical Correlation therefore is recommended. 09/11/19 Anesthesia Assessment and Plan Anesthesia History Personal History: No History of Anesthesia Complications Family History: No Family History of Anesthesia Complications Exercise Tolerance Exercise Tolerance: Metabolic Equivalents>4 Pertinent Negatives Pertinent Negatives: No Symptoms of GERD Cardiac & Pulmonary Exam Cardiac Exam: Normal S1/S2 Heart Sounds Pulmonary Exam: Clear Bilateral Breath Sounds Implantable Cardiac Device Does patient have a Pacemaker or an ICD?: No Airway Exam Known Difficult Airway: No Mallampati Class: 2 Mouth Opening: Normal (> 3cm) Thyromental Distance: Greater than 3 cm Neck Range of Motion: Full ROM Neck Circumference: Thick Teeth Condition: Normal Dentition ASA Classification ASA Score: ASA 2 Emergency Case?: No NPO Status NPO Status: NPO Clears >2 hours, Solids >8 hours Anesthesia Plan Resuscitation Status: Full Code Anesthesia Technique: Spinal Anesthesia Airway Planned: Natural Airway Monitors Used: Standard Monitors
[2022-10-18] MEDS: ceFAZolin 3,000 MG in Normal Saline 100 ML 200 MG IVPB (08:12)
[2022-10-18] MEDS: Bupivacaine 0.5% Pres-Free 30 ML VIAL 22 ML IJ (08:30)
--- NOTE | 2022-10-18 08:38 | W.ANESNERVE ---
Nerve Block Single Injection Procedure Date and Time Date Performed: 10/18/22 Procedure Start: 07:44 Location Where Procedure Performed Procedure Location: Day Surgery Unit Reason Performed: Postoperative Analgesia Requesting Provider: Cj Stiles Timeout Performed Timeout Performed: Yes Monitoring Used ECG, Blood Pressure, SpO2 and ETCO2 Sterility Sterility: Hand Hygiene, Surgical Cap, Surgical Mask, Sterile Gloves, Eye Protection and Chlorhexidine Sedation Given During Procedure Sedation Given (Indicate Dose Given): Versed IV Dose:: 2mg Patient Mental Status Patient Mental Status: Awake Nerve Block 1st Nerve Block: Laterality: Right Block Type: Adductor Canal Ultrasound Image Saved?: Yes Needle / Catheter Used: 120mm SonoPlex II Local Anesthetic Bolus (Indicate Dose Given): Lidocaine used for local infiltration of skin (1cc (2%)), Injected in 3-5ml increments after negative blood aspiration and Ropivacaine 0.5% Dose:: 110mg (22cc) Additives (Indicate Dose Given): Epinephrine to make 1:200,000 (5mcg/ml) Dose:: 110mcg and Decadron Dose:: 4mg Ultrasound: Sterile probe cover and gel used Nerve Stimulator: Not Used Paresthesia: None Procedure Tolerated: Patient tolerated well Procedure Outcome: Successful Performed By: Sincere Ogden
--- NOTE | 2022-10-18 10:03 | W.PM.DSUDISC ---
Date of service: 10/18/22 Time of Service: 10:03 Discharge Plan Disposition Patient Disposition: Home Condition: Good Discharge Details Reason For Visit: Right Knee DJD Attending Provider: Cj Stiles Primary Care Provider: Tea Porter Home Meds and New Rx's Prescriptions: New celecoxib 200 mg capsule 200 mg PO BID PRN (Reason: pain) Qty: 60 1RF acetaminophen 500 mg tablet 1,000 mg PO Q8H PRN (Reason: pain) Qty: 90 3RF cefadroxil 500 mg capsule 500 mg PO BID Qty: 14 0RF pantoprazole 40 mg tablet,delayed release (DR/EC) 40 mg PO DAILY Qty: 30 0RF gabapentin 300 mg capsule 300 mg PO QHS Qty: 14 0RF oxycodone 5 mg tablet 5 mg PO Q4H PRNQty: 18 0RF Continued lisinopril 10 mg tablet 10 mg PO DAILY metformin 500 mg tablet 1,000 mg PO DAILY ropinirole 1 mg tablet 1 mg PO QHS Rx Instructions: administer 1-3 hours before bedtime vitamin B complex [B Complex-Vitamin B12] Tablet 1 tab PO DAILY omega 4-faq-pgc-fish oil [Fish Oil] 300-1,000 mg capsule 1 cap PO DAILY Digestive Advantage Advanced 10 billion cell capsule 10 cell PO DAILY multivitamin Tablet 1 tab PO DAILY ascorbic acid (vitamin C) 500 mg tablet 500 mg PO DAILY calcium carbonate [Calcium 500] 500 mg calcium (1,250 mg) tablet,chewable 500 mg PO DAILY omeprazole 20 mg capsule,delayed release(DR/EC) 20 mg PO DAILY darifenacin 7.5 mg tablet extended release 24 hr 15 mg PO DAILY folic acid 1 mg tablet 1 mg PO DAILY hydrochlorothiazide 25 MG tablet 25 mg PO DAILY cholecalciferol (vitamin D3) [Vitamin D3] 1,000 UNIT tablet,chewable 1,000 unit PO DAILY Discharge Instructions Additional Instructions: Total Knee Discharge Instructions Activity: The most important activity is to walk and to work on gentle motion (both flexion and extension). You should try to take short walks a few times a day. It is important that when resting you work on keeping the knee straight. Avoid putting a pillow behind the knee as this will encourage flexion. Work on range of motion exercises as provided by Physical Therapy. - Start outpatient physical therapy within 2 weeks. - You should wear the JANAY hose on both legs for 2 weeks. You may remove these at night. You may also use any compression sock in place of the JANAY hose. - Utilize [employer] to review exercises, see videos on exercises and obtain basic information pertaining to your surgery and your recovery. Dressing: Remove the Myron wrap by 2 days after your surgery and put on the JANAY stocking given to you from the hospital. Keep the surgical dressing (underneath the MYRON wrap) in place for at least one week. After the first week it may be removed and replaced with light gauze and tape or nothing. The wound and dressing may get wet after 3 days but avoid soaking the dressing or otherwise it will need to be changed. Many people prefer covering the dressing with cling wrap (saran wrap) to minimize it from getting soaked. If it gets wet, just pat dry. If it starts to peel off then it will need to be changed. Medications: - You should take Tylenol and anti-inflammatory Celebrex as your primary pain control medications. If the Celebrex is too expensive or not covered, please call the office for another alternative (Advil/Ibuprofen or Naproxen/Aleve) - You have been prescribed a stronger pain medication Oxycodone for breakthrough pain, take as needed as prescribed. - You have also been prescribed a stomach acid reduction agent Pantoprozole to help reduce stomach acid and reflux. - You have been prescribed Gabapentin to take at night for restlessness and nerve pain. - You will be taking Aspirin 81mg twice a day for DVT prevention unless instructed otherwise. - YOu have been prescribed an antibiotic to take for 7 days as prophylaxis against infection. - If you have constipation you should take Colace or Miralax (both [id number]). It takes most people 3-4 days to have a bowel movement. Follow-up: 2 weeks If you have any acute concerns or questions, please do not hesitate to contact the office at [phone]. You may contact Dr. Stiles with any questions after hours through the hospital at [phone] or on his cell phone at [phone]. Stand Alone Forms: Anesthesia Discharge Inst., Anes.Nerve Block Instructions, Anuj Addison (DSU) Referrals: Cj Stiles MD [ [facility] STAFF PHYSICIAN] - 11/02/22 10:45 am Equipment/Supplies: Walker Activity:: Activity as Tolerated Shower/Bathe:: 72 hours Diet:: Carb Counting Discharge Orders Discharge Orders: Discharge Order (Routine); Ordered 10/18/22 Ordered By: Cj Stiles
[2022-10-18] MEDS: Normal Saline 10 ML VIAL IJ (10:50)
[2022-10-18] MEDS: HYDROmorphone 2 MG/ML SYR IVP ×2 (10:50→11:00)
--- NOTE | 2022-10-18 11:10 | W.ANESPOSTOP ---
Postoperative Evaluation Date, Time and Location Date Performed: 10/18/22 Time Performed: 11:10 Patient Location: PACU Vital Signs Most Recent Imported Vital Signs: Most Recent Vital Signs Temp Pulse Resp BP Pulse Ox 36.4 C L 80 15 121/76 97 10/18/22 11:00 10/18/22 11:10 10/18/22 11:10 10/18/22 11:10 10/18/22 11:10 Pain Score Most Recent Pain Score: Most Recent Pain Score Pain Level 4 10/18/22 11:10 Assessment Mental Status: Awake (Alert & Oriented to Patient Baseline) Airway and Respiratory Function: Patent airway with normal (patient baseline) respiratory exam Cardiovascular Function: Hemodynamically Stable Hydration Status: Adequately Hydrated Nausea & Vomiting: No Nausea or Vomiting Pain: Pain is tolerable per patient Peripheral Nerve Block: Regional nerve block not resolved at time of post operative discharge
--- NOTE | 2022-10-18 11:49 | W.PM.OP ---
Date of service: 10/18/22 Time of Service: 09:45 Operative Note Operative Note DATE OF PROCEDURE: 10/18/22 PRE-OP DIAGNOSIS: Right Knee Osteoarthritis POST-OP DIAGNOSIS: same PROCEDURE: Right Total Knee Replacement with Intraoperative Navigation SURGEON: Cj Stiles [employer]: [employer] ANESTHESIA TYPE: Spinal Refer to Anesthesia Record ESTIMATED BLOOD LOSS: 100 PATHOLOGY: none sent TOURNIQUET TIME: 0 COMPLICATIONS: None Patient was transported to: PACU Patient's condition: stable Implants: 1. Depuy Attune Cementless Cruciate Retaining Femoral Component, Size 6 2. Depuy Attune Cementless Fixed Bearing Tibial Component, Size 6 3. Depuy Attune 6x6 CR/FB Poly 4. Depuy Attune Patellar Component, Size 35 Indications: I have seen Denise in clinic for symptoms of RIGHT knee arthritis, confirmed with radiographic findings. She has exhausted nonoperative methods and was having significant limitations in daily function and desired better function and less pain. I discussed the technical details of a knee replacement. I explained the risks of the procedure to include, but not limited to, bleeding, infection, pain, stiffness, fracture, damage to nerves and vessels, damage to muscles and tendons, loosening, need for repeat procedure, blood clot and cardiopulmonary demise. Despite these risks, Denise elected to proceed. Findings: There was significant signs of arthritis throughout the knee. Procedure Description: Denise was greeted in the preoperative holding area where the correct side was identified and marked. The consent was reviewed with the patient and signed. The history and physical was updated. All questions were answered. Preoperative mediacations were administered: Acetaminophen 1000mg, Celebrex 400mg, and Gabapentin 300mg. An adductor canal block was then administered by the anesthesia team in the PACU. She was taken back to the operating room. A spinal anesthestic was then administered. The patient was placed into the supine position on the operating room table. A nonsterile tourniquet was placed high onto the leg. Posts were placed for positioning during the procedure. All bony prominences were well padded. Prophylactic antibiotics in the form of Cefazolin were administered. 1g of Tranxemic Acid was given intravenously within 30 minutes of incision. The right leg was then prepped with Chloraprep and draped in a standard fashion with impervious stockinette. A second prep with Chloraprep was performed prior to application of Iodine impregnated skin protection. A timeout to confirm correct identity, side and site, procedure, allergies, anesthesia, and medical concerns was performed. With the knee in some flexion, a midline incision was made overlying the knee. Full thickness skin flaps were raised once the extensor mechanism was encountered. These were raised medially and laterally. Any bleeding was controlled with electrocautery. Once the extensor mechanism was fully exposed, a medial parapatellar arthrotomy was performed in a flexed position. All bleeding from the arthrotomy and the geniculate arteries was coagulated. A medial subperiosteal peel was performed with electrocautery to the midcoronal plane. The fat pad was removed while keeping the patellar tendon protected. The anterior distal femur synovium was removed for later visualization. The ACL and PCL were resected and the anterior horn of the lateral meniscus was transected. The knee was then flexed with the patella everted. Large osteophytes from the tibia were removed. Large osteophytes from the femur were removed. A single starting pin was then placed 1cm anterior to the PCL insertion and the notch in the direction of the femoral head. The OrthoAlign device was applied over the pin. It was oriented to be in line with the epicondylar axis and the trochlear groove. It was then pinned into place. The navigation computer was then turned on and calibrated. The distal femur cut was set at 0 degrees varus/valgus and 3.5 degrees flexion. The distal femur cutting guide then was positioned for a 9mm cut. The distal femur was cut with an oscillating saw while protecting the soft tissues. The tibia was then addressed. The OrthoAlign device was placed over the tibial tubercle and medial tibia and secured into position. Once again, OrthoAlign was calibrated and then set for a 1 degree varus cut and 5 degrees of posterior slope. With this locked into position, the cut thickness stylus was used to assess cut thickness. The medial side, most involved side, was set for a 4mm cut. This was then held in position and pinned into place with 2 additional pins and a cross pin for stability. The medial and lateral collateral ligaments were protected and the cut was performed. With this completed, it was assessed and noted to be of appropriate dimensions. The guide and OrthoAlign was removed. A spacer block was inserted and the knee was brought into extension to ensure enough space was present. The femur was then sized as a size 6. The Orthoalign gap balancing device was then placed in extension. This was used to ensure that the ligaments were properly balanced with up to 2 to 3 mm laxity laterally compared medially. The extension gap was measured as 18mm. The knee was then brought into 90 degrees of flexion and the ligament stockroom coordinator was once again placed. Under the same amount of force the flexion gap was measured. The attending specific jig was placed and the flexion gap was made to match the extension gap. The 4-in-1 cutting guide was the placed. An nayely wing was used to confirm appropriate position of the anterior cut to avoid notching. This cutting guide was ensured to be flush on the cut surface and then pinned into place with headed pins. While protecting the soft tissues, quad tendon, and collateral ligaments, the anterior and posterior cuts were performed with a saw. The central two pins were removed and the posterior and anterior chamfers were cut next. The notch-cutting guide was placed. This was pinned to lateralize the femoral component as much as possible while keeping it flush on the cut surface. This was then pinned into position. A saw was used to make the notch cut. A rasp smoothed the cut surfaces. The medial and lateral menisci were removed. A trial femoral component was then inserted, impacted down to the cut surfaces, and the lug holes were drilled. A provisional trial tibial component was placed and the knee was brought through range of motion. There was noted to be excellent extension and flexion. There was no significant instability. The patella was tracking without thumbs. A size 6mm polyethylene component provided the best range of motion and stability with less than 2mm gapping with medial and lateral stress and full extension without significant hyperextension. The tibial cut surface was fully exposed. The tibia was then sized as a 6. The tibia had been previously marked during trialing to correspond to the center of the tibial component to help with rotation. The trial was aligned to this magy, approximately rotated to the medial 1/3rd of the tibial tubercle. The trial was pinned into place. The tibia was prepared with a reamer and a keel punch and lug holes. The knee was then brought into extension and the patella was measured as 24mm. Using the patellar clamp and cut guide, this was resected to a flat surface with at least 13mm of thickness remaining. The size 35 patella fit the best. This was oriented and then clamped into position. The lugs were drilled. The trial components were removed. The final components were opened on the back table. The periosteal and capsular tissues, especially posteriorly, around the knee were then systematically injected with a periarticular cocktail consisting of 246mg of Ropivacaine, 0.5mg of Epinephrine, 0.08mg of Clonidine, and 30mg of Ketorolac, diluted to 100cc. On the back table, with the implants opened, the cement was mixed. One batch of high viscosity cement was prepared with vacuum assistance. After the cement was ready a small amount was placed on the cut surface of the patella and the patellar button was clamped into position and held. While the cement was hardening, the cementless knee components were placed. Starting with the tibial component, the tibia was subluxed anteriorly and the lug holes of the component were lined up. The tibia was then impacted with an impactor and mallet until the tibial component was in contact with the tibia. Then, the femoral component was inserted. The lug holes were aligned and the component was impacted into position. Then, the final polyethylene component was inserted. The knee was irrigated with Surgiphor Betadine solution. This was allowed to sit in the knee for 3 minutes and then it was thoroughly irrigated out with saline. After the cement had finally cured, approximately 15min, the clamp was removed from the patella and the knee was taken through range of motion. The patella was tracking with a no-thumbs technique. The capsule was then reapproximated with a No. 1 Vicryl at multiple locations. The capsule was finally closed with a No. 2 Stratafix, barbed suture. Deep tissues were then reapproximated with 0 Vicryl and 2-0 Vicryl. The skin was closed with a running 3-0 Monocryl in a subcuticular fashion. This was reinforced with skin glue. A Mepilex silver dressing was applied along with a [id number] KEMI wrap. A CryoCuff was applied. Denise was transferred to the hospital bed without difficulty an suffering no apparent complication. She has a good prognosis. Physical therapy will start today and without restrictions, weight-bearing as tolerated. Aspirin 81mg BID will be used for DVT prophylaxis.
[2022-10-18] MEDS: Ondansetron 4 MG/2 ML VIAL IVP (12:01)
[2022-10-18] MEDS: Ketorolac 15 MG/ML VIAL IVP ×2 (16:42→21:45)
[2022-10-18] MEDS: Normal Saline Flush 10 ML SYR IV (16:43)
[2022-10-18] MEDS: ceFAZolin 1 GM/50 ML BAG IVPB ×2 (16:44→23:39)
--- NOTE | 2022-10-18 17:09 | IN_ITS ---
Date of service: 10/18/22 Time of Service: 16:40 PT Notes Visit Reasons: Right Knee DJD Physical Therapy Inpatient Initial Evaluation Date: 10/18/2022 Referring Doctor: Cj Stiles MD PT Orders: PT CONSULT: S/P Ortho surgery Precautions: Fall. Standard. WBAT on right LE with AD. Patient Profile/Admitting Diagnosis: Denise is a 62-year-old female with degenerative joint disease of the right knee and is status post right total knee arthroplasty on postoperative day 0. 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 Independent with all aspects of ADLs prior to surgery. Equipment Owned/DME: None Subjective: Reports fogginess with mild dizziness upon sitting at edge of bed. Verbalizes 3/10 pain on the left knee with weight bearing. Denies headache and chest pain throughout session. Objective: General Observation: Supine in bed. IV through R UE. KEMI wraps to right LE. Cryocuff to right knee. Nurse Barbie prepping up IV abx for patient. On room air. Mental Status: Alert and oriented as to person, place, time, and purpose. Able to pay attention, focus, and respond appropriately. Pain: 1/10 in in the right knee at rest 3/10 with weight bearing Vital Signs: Closely monitored by nursing staff ROM: Right Lower Extremity: Hip flexion WFL. Hip abduction WFL. Knee flexion about 20 to 90 degrees. Knee extension about -20 degrees ankle dorsiflexion WFL. Ankle plantarflexion WFL. Left Lower Extremity: Hip flexion WFL. Hip abduction WFL. Knee flexion WFL. Ankle dorsiflexion WFL. Ankle plantarflexion WFL. Strength: Right Lower Extremity: Hip flexors 4-/5. Hip abductors 4-/5. Knee flexors 3-/5. Knee extensors 3-/5. Ankle dorsiflexors 4-/5. Ankle plantarflexors 4-/5. Left Lower Extremity: Hip flexors 4/5. Hip abductors 4/5. Knee flexors 5/5. Knee extensors 5/5. Ankle dorsiflexors 5/5. Ankle plantarflexors 5/5. Bed Mobility/Transfers: Supine to sit standby assist with HOB at 30 degrees Sit to stand contact-guard assist with FWW, cues provided for hand placement Stand to sit stand by assist with FWW, cues provided for hand placement Bed to reclining chair contact-guard assist with FWW Gait: Instructed patient with level surface ambulation of 8 feet requiring contact guard assist using FWW with step-to gait pattern. Huong decreased. Reports 3/10 pain in the R knee but no buckling nor LOB. No SOB. Verbalized being foggy and dizzy during the walk. Balance: Static Sitting: Normal Dynamic Sitting: Normal Static Standing: Fair Dynamic Standing: Fair Special Tests: Mobility Limitations Standardized Measure [facility] 6 clicks Basic Mobility Inpatient Short Form: Raw Score: 19 CMS Score: 42% deficit Informed Consent/Education: Patient was instructed in purpose of PT consult and plan of care. Agreeable to proceed with established PT POC to achieve personal goals. THERA EX: Supine quads sets x 5sh for 10 reps Ankle pumps x 10 reps Assessment: Requires the assistance of 1 person the use of front wheeled walker for horan sfers and ambulation task performance. Patient presents with clinical signs and symptoms consistent with current/admitting diagnoses that have resulted to mobility limitations, gait instability, generalized weakness, and overall ADL decline as demonstrated by the following impairment level findings: 1. Decreased strength to R knee major muscle groups 2. Impaired standing balance 3. Impaired activity tolerance 4. Limitation of joint range of motion in R knee 5. Reports of dizziness with fogginess with short distance ambulation Impairments are contributing to the following functional limitations: 1. Decline in bed mobility skills 2. Decline in transfer skills 3. Difficulty with ambulation without assistive device and physical assistance 4. Increased completion time for mobility ADL performance 5. Increased risk for falls 6. Difficulty with managing steps alone safely Patient is [place] a 32812 moderate complexity based on the following: History: 62-year-old female with past medical history as indicated above Examination: Demonstrable impairment in strength, balance, and mobility level with underlying impairments and functional limitations as exhibited above as wel l as deficit score of 42% utilizing the [facility] Mobility Inpatient Short Form Presentation: Evolving Decision Makin moderate complexity Goals: Goals X1 week 1. Supine-Sit independent 2. Sit-Supine independent 3. Sit-Stand independent 4. Stand-Sit independent with FWW 5. Bed-Chair independent with FWW 6. Chair-Bed independent with FWW 7. Independent gait on level surface with use of FWW for at least 300 feet without report of pain nor dyspnea 8. Independent stair negotiation while holding onto 1 rail for at least 3 steps without report of pain nor dyspnea 9. Independent with home exercise program 10. Good static and dynamic standing balance/tolerance Plan of Care/Treatment Plan: 1-2x/day, 7 days/week x 1 week. Plan of care has been reviewed with the OXYGEN EQUIPMENT TECHNICIAN providing the service under Physical Therapy direction. Initiate Physical Therapy intervention for pain management as needed, strengthening, bed mobility, transfers, gait, stairs, balance training, and use of assistive device. DISCHARGE RECOMMENDATIONS: [] Home with no services [] [X] Home with services. Patient will benefit from home health PT services in order to progress mobility level using least restrictive assistive ambulatory device, assess home safety, identify additional equipment needs, and establish a functional maintenance program that will increase ability of patient to remain at home. [] Home with outpatient PT [] [] SNF for continued rehabilitation [] [] [facility] [] [] SNF versus LTC based on ability to participate and progress [] TREATMENT CODE/TIME: 29706 x 27 minutes beginning at 16:40 PM. Thank you for the opportunity to participate in the care of this patient. Yolanda Funez PT, DPT, CLT [facility] [place], [place]
[2022-10-18] MEDS: Aspirin E.C. 81 MG TABEC PO (20:50)
[2022-10-18] MEDS: rOPINIRole 1 MG TAB PO (21:46)
[2022-10-19] MEDS: Ketorolac 15 MG/ML VIAL IVP ×2 (03:56→09:49)
[2022-10-19 04:06] VITALS: BP 107/62; PULSE 66; RESP 16; TEMP 36.6; O2SAT 95
[2022-10-19 07:34] VITALS: BP 109/74; PULSE 70; RESP 17; TEMP 36.6; O2SAT 93
[2022-10-19] MEDS: Ascorbic Acid 500 MG TAB PO (07:46)
[2022-10-19] MEDS: Vitamins B Comp w/C TAB 1 TAB PO (07:46)
[2022-10-19] MEDS: Omeprazole 20 MG CAPCR PO (07:46)
[2022-10-19] MEDS: metFORMIN 500 MG TAB 1000 MG PO (07:47)
[2022-10-19] MEDS: Acetaminophen 500 MG TAB 1000 MG PO ×2 (07:47→13:23)
[2022-10-19] MEDS: Dexamethasone 4 MG TAB PO (07:47)
[2022-10-19] MEDS: Cholecalciferol (Vitamin D3) 1,000 UNIT TAB 1000 UNITS PO (07:47)
[2022-10-19] MEDS: hydroCHLOROthiazide 25 MG TAB PO (07:48)
[2022-10-19] MEDS: Lisinopril 10 MG TAB PO (07:48)
[2022-10-19] MEDS: Multivitamin TAB 1 TAB PO (07:48)
[2022-10-19] MEDS: Normal Saline Flush 10 ML SYR IV ×2 (07:48→09:50)
[2022-10-19] MEDS: Aspirin E.C. 81 MG TABEC PO (07:48)
[2022-10-19] MEDS: ceFAZolin 1 GM/50 ML BAG IVPB (07:49)
[2022-10-19] MEDS: Folic Acid 1 MG TAB PO (08:52)
--- NOTE | 2022-10-19 09:46 | W.PM.DS.N ---
Date of service: 10/19/22 Time of Service: 09:47 DS: Diagnosis Discharge Diagnosis (1) History of total right knee replacement: Status: Acute Discharge Plan Disposition Patient Disposition: Home Condition: Good Discharge Details Reason For Visit: Right Knee DJD Admit Date/Time: 10/18/22 10:02 Admit Provider: Cj Stiles Attending Provider: Cj Stiles Primary Care Provider: Tea Porter [facility] Course Hospital Course: Patient was admitted to the medical/surgical floor following the procedure for pain management as well as decreasing oxygen levels during rest. The surgery was tolerated well without any notable medical, surgical, or anesthetic complications except some the ongoing pain. Mobilization began postoperatively. She was voiding spontaneously. Vitals were stable. She improved with time throughout the evening of the day of surgery and was feeling well on the morning of discharge, closer interval 1. Physical therapy worked with the patient and was cleared for discharge home. No acute medical issues. Pain was controlled on oral regimen. Home Meds and New Rx's Prescriptions: New celecoxib 200 mg capsule 200 mg PO BID PRN (Reason: pain) Qty: 60 1RF acetaminophen 500 mg tablet 1,000 mg PO Q8H PRN (Reason: pain) Qty: 90 3RF cefadroxil 500 mg capsule 500 mg PO BID Qty: 14 0RF gabapentin 300 mg capsule 300 mg PO QHS Qty: 14 0RF oxycodone 5 mg tablet 5 mg PO Q4H PRNQty: 18 0RF Continued lisinopril 10 mg tablet 10 mg PO DAILY metformin 500 mg tablet 1,000 mg PO DAILY ropinirole 1 mg tablet 1 mg PO QHS Rx Instructions: administer 1-3 hours before bedtime vitamin B complex [B Complex-Vitamin B12] Tablet 1 tab PO DAILY omega 4-rnl-zzj-fish oil [Fish Oil] 300-1,000 mg capsule 1 cap PO DAILY Digestive Advantage Advanced 10 billion cell capsule 10 cell PO DAILY multivitamin Tablet 1 tab PO DAILY ascorbic acid (vitamin C) 500 mg tablet 500 mg PO DAILY calcium carbonate [Calcium 500] 500 mg calcium (1,250 mg) tablet,chewable 500 mg PO DAILY omeprazole 20 mg capsule,delayed release(DR/EC) 20 mg PO DAILY darifenacin 7.5 mg tablet extended release 24 hr 15 mg PO DAILY folic acid 1 mg tablet 1 mg PO DAILY hydrochlorothiazide 25 MG tablet 25 mg PO DAILY cholecalciferol (vitamin D3) [Vitamin D3] 1,000 UNIT tablet,chewable 1,000 unit PO DAILY Discharge Instructions Additional Instructions: Total Knee Discharge Instructions Activity: The most important activity is to walk and to work on gentle motion (both flexion and extension). You should try to take short walks a few times a day. It is important that when resting you work on keeping the knee straight. Avoid putting a pillow behind the knee as this will encourage flexion. Work on range of motion exercises as provided by Physical Therapy. - Start outpatient physical therapy within 2 weeks. - You should wear the JANAY hose on both legs for 2 weeks. You may remove these at night. You may also use any compression sock in place of the JANAY hose. - Utilize [employer] to review exercises, see videos on exercises and obtain basic information pertaining to your surgery and your recovery. Dressing: Remove the Myron wrap by 2 days after your surgery and put on the JANAY stocking given to you from the hospital. Keep the surgical dressing (underneath the MYRON wrap) in place for at least one week. After the first week it may be removed and replaced with light gauze and tape or nothing. The wound and dressing may get wet after 3 days but avoid soaking the dressing or otherwise it will need to be changed. Many people prefer covering the dressing with cling wrap (saran wrap) to minimize it from getting soaked. If it gets wet, just pat dry. If it starts to peel off then it will need to be changed. Medications: - You should take Tylenol and anti-inflammatory Celebrex as your primary pain control medications. If the Celebrex is too expensive or not covered, please call the office for another alternative (Advil/Ibuprofen or Naproxen/Aleve) - You have been prescribed a stronger pain medication Oxycodone for breakthrough pain, take as needed as prescribed. - You will continue your stomach acid reduction agent, Omeprazole, to help reduce stomach acid and reflux. - You have been prescribed Gabapentin to take at night for restlessness and nerve pain. - You will be taking Aspirin 81mg twice a day for DVT prevention unless instructed otherwise. - YOu have been prescribed an antibiotic to take for 7 days as prophylaxis against infection. - If you have constipation you should take Colace or Miralax (both gbun-cat-xecwaac). It takes most people 3-4 days to have a bowel movement. Follow-up: 2 weeks If you have any acute concerns or questions, please do not hesitate to contact the office at [phone]. You may contact Dr. Stiles with any questions after hours through the hospital at [phone] or on his cell phone at [phone]. Stand Alone Forms: Anesthesia Discharge Inst., Fayes.Nerve Block Instructions, Anuj Addison ([facility]U) Referrals: Cj Stiles MD [ [facility] STAFF PHYSICIAN] - 11/02/22 10:45 am Equipment/Supplies: Walker Activity:: Activity as Tolerated Shower/Bathe:: 72 hours Activity:: Activity as Tolerated Equipment/Supplies:: Walker Diet:: Carb Counting Discharge Orders Discharge Orders: Discharge Order (Routine); Ordered 10/18/22 Ordered By: Cj Stiles DS: Summary Time Spent with Patient providing and/or coordinating discharge services: Less than 30 minutes Status at Discharge Functional status at discharge: uses cane/walker Overall status at discharge: patient is progressing back to baseline Mental Status: mental status grossly normal Speech and Movement: speech and movement normal Mood: congruent mood Affect: normal affect Exam Narrative Exam Narrative: Sitting up in the hospital bed. No acute distress. Alert oriented x3. Evaluation of right leg shows dressing which is clean dry and intact. Myron wrap is in place. She is able to weakly demonstrate straight leg raise. She has intact ankle dorsiflexion plantarflexion. Gentle passive range of motion from 5 to 85 degrees. Psych Mental Status: mental status grossly normal Speech and Movement: speech and movement normal Mood: congruent mood Affect: normal affect DS: Data Vitals/I&O Vitals and I&O: Vital Signs Temperature 36.6 C 10/19/22 07:34 Temperature Source Tympanic 10/19/22 07:34 Pulse 70 10/19/22 07:34 Pulse Rhythm Regular 10/18/22 20:00 Respiratory Rate 17 10/19/22 07:34 Respiratory Effort Normal, Non-Labored 10/18/22 20:00 Respiratory Depth Normal 10/18/22 20:00 Respiratory Pattern Normal 10/18/22 20:00 Blood Pressure 109/74 10/19/22 07:34 Blood Pressure Mean 95 10/18/22 14:54 Blood Pressure Position Standing 10/18/22 14:54 Pulse Oximetry 93 10/19/22 07:34 Respiratory End-tidal CO2 36 10/18/22 11:00 Oxygen Delivery Method Room Air 10/19/22 07:34 Oxygen Flow Rate 0 10/19/22 07:34 Pain Level 2 10/19/22 07:47 Comment pain 8/10 10/19/22 07:34 Intake & Output 10/18/22 10/18/22 10/19/22 11:59 23:59 11:59 Intake Total 1460 / 2271.333 811.333 / 2271.333 290 / 290 Output Total 100 / 600 500 / 600 700 / 700 Balance 1360 / 1671.333 311.333 / 1671.333 -410 / -410 Weight 116.2 kg Intake: IV 1410 / 1980.333 571.333 / 1980.333 50 / 50 Oral 50 / 290 240 / 290 240 / 240 Output: Urine 500 / 500 700 / 700 Estimated Blood Loss 100 / 100 Other: Urine Color Yellow Yellow Urine Appearance Clear Clear Emesis Description Bile None Clear/Water Voiding Methods Toilet Bedside Commode Bedside Commode PFS All Active Problems History of total right knee replacement (Acute 10/18/22) Screening for colon cancer (Acute) Serrated adenoma of colon (Acute) Hyperplastic colon polyp (Acute) Rotator cuff tear arthropathy of right shoulder (Acute) Medical History Adenomatous colon polyp Depression Dyspareunia Ganglion cyst Generalized anxiety disorder GERD (gastroesophageal reflux disease) H/O tinnitus History of revision of total replacement of left knee joint (2004) HTN (hypertension) 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 Obesity Palpitations Panic attack Prediabetes Thyroid nodule Traumatic tear of right rotator cuff Urge incontinence Varicose veins of both lower extremities Vitamin D deficiency Surgical History History of colonoscopy (~11/2021) History of total knee arthroplasty (L) Hx of foot surgery Social History Smoking/Tobacco Use Status: Former Tobacco Use Quit Date: 04/09/04 Smoking risk assessment performed?: Yes Alcohol Intake: current Alcohol Intake frequency: holidays/special occasions only Drug use: Never Substance use type: does not use Housing: house Current gender identity: female Do you feel safe at home: Yes Do you feel safe in your relationship?: Yes Time Spent with Patient Time Spent with Patient: <45 minutes Time was spent: counseling the patient and care coordination
[2022-10-19 11:11] VITALS: BP 100/68; PULSE 72; TEMP 37.3; O2SAT 96
--- NOTE | 2022-10-19 13:48 | PT.INDS ---
Date of service: 10/19/22 Time of Service: 11:45 PT Notes Visit Reasons: Right Knee DJD Physical Therapy Inpatient Discharge Summary Date: 10/19/2022 Dates of service: 10/18/2022 through 10/19/2022 Referring Doctor: Cj Stiles MD PT Orders: PT CONSULT: S/P Ortho surgery Precautions: Fall. Standard.? WBAT on right LE with AD. Patient Profile/Admitting Diagnosis:? Denise is a 62-year-old female with degenerative joint disease of the right knee and is status post right total knee arthroplasty on postoperative day 0. 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 Independent with all aspects of ADLs prior to surgery. Equipment Owned/DME: None Subjective: Reports feeling much better and is looking forward to going home after lunch today. Objective: General Observation: Supine in bed.? IV through R UE.? KEMI wraps to right LE.? Cryocuff to right knee.? Nurse Barbie prepping up IV abx for patient.? On room air. Mental Status: Alert and oriented as to person, place, time, and purpose. Able to pay attention, focus, and respond appropriately. Pain: 1/10 in in the right knee at rest 3/10 with weight bearing Vital Signs: Closely monitored by nursing staff ROM: Right Lower Extremity: Hip flexion WFL. Hip abduction WFL. Knee flexion about 20 to 90 degrees.? Knee extension about -20 degrees ankle dorsiflexion WFL. Ankle plantarflexion WFL. Left Lower Extremity: Hip flexion WFL. Hip abduction WFL. Knee flexion WFL. Ankle dorsiflexion WFL. Ankle plantarflexion WFL. Strength: Right Lower Extremity: Hip flexors 4-/5. Hip abductors 4-/5. Knee flexors 3-/5. Knee extensors 3-/5. Ankle dorsiflexors 4-/5. Ankle plantarflexors 4-/5. Left Lower Extremity: Hip flexors 4/5. Hip abductors 4/5. Knee flexors 5/5. Knee extensors 5/5. Ankle dorsiflexors 5/5. Ankle plantarflexors 5/5. Bed Mobility/Transfers: Supine to sit independent Sit to stand independent with FWW Stand to sit independent with FWW Bed to reclining independent with FWW Gait: Instructed patient with level surface ambulation of 100 feet + 200 feet requiring stand by assist using FWW with step-through gait pattern. Huong improving. Reports 3/10 pain in the R knee but no buckling nor LOB.? No SOB.? later in the morning, patient covered a distance of 350 feet using FWW. Stairs: Ascended and descended 6 x 4 inch steps and 4 x 6 inch steps while holding onto bilateral rails with step to gait pattern with no report of increased pain requiring only standby assist. Balance: Static Sitting: Normal Dynamic Sitting: Normal Static Standing: Fair Dynamic Standing: Fair Special Tests: Mobility Limitations Standardized Measure [facility] 6 clicks Basic Mobility Inpatient Short Form: Raw Score: 24? CMS Score: 0% deficit? ? ? Informed Consent/Education:? Patient was instructed in purpose of PT consult and plan of care. Agreeable to proceed with established PT POC to achieve personal goals. Exercises - Quadriceps Sets - 1 x daily - 7 x weekly - 1 sets - 10 reps - 5 hold - Supine Heel Slide - 1 x daily - 7 x weekly - 1 sets - 10 reps - 5 hold - Supine Ankle Pumps - 1 x daily - 7 x weekly - 1 sets - 10 reps - 5 hold - Small range straight leg raise - 1 x daily - 7 x weekly - 1 sets - 10 reps - 5 hold - Seated June - 1 x daily - 7 x weekly - 1 sets - 10 reps - 5 hold Assessment: Requires the assistance of 1 person the use of front wheeled walker for transfers and ambulation task performance. ? Patient presents with clinical signs and symptoms consistent with current/admitting diagnoses that have resulted to mobility limitations, gait instability, generalized weakness, and overall ADL decline as demonstrated by the following impairment level findings: 1.? Decreased strength to R knee major muscle groups 2.? Impaired standing balance 3.? Impaired activity tolerance 4.? Limitation of joint range of motion in R knee 5.? Reports of dizziness with fogginess with short distance ambulation Impairments are contributing to the following functional limitations: 1.? Decline in bed mobility skills 2.? Decline in transfer skills 3.? Difficulty with ambulation without assistive device and physical assistance 4.? Increased completion time for mobility ADL performance 5.? Increased risk for falls 6.? Difficulty with managing steps alone safely Goals: Goals X1 week 1. Supine-Sit independent MET 2. Sit-Supine independent MET 3. Sit-Stand independent MET 4. Stand-Sit independent with FWW MET 5. Bed-Chair independent with FWW MET 6. Chair-Bed independent with FWW MET 7. Independent gait on level surface with use of FWW for at least 300 feet without report of pain nor dyspnea NOT MET 8. Independent stair negotiation while holding onto 1 rail for at least 3 steps without report of pain nor dyspnea NOT MET 9. Independent with home exercise program MET 10. Good static and dynamic standing balance/tolerance NOT MET DISCHARGE RECOMMENDATIONS: [] ? Home with no services [] [X] ? Home with services.? Patient will benefit from home health PT services in order to progress mobility level using least restrictive assistive ambulatory device, assess home safety, identify additional equipment needs, and establish a functional maintenance program that will increase ability of patient to remain at home. [] ? Home with outpatient PT [] [] ? SNF for continued rehabilitation [] [] ? Nursing Home Care [] [] ? SNF versus LTC based on ability to participate and progress [] TREATMENT CODE/TIME: Session 1--99907 x 15 minutes, 99298 x 11 minutes beginning at 9:05 AM. Session 2--66946 x 16 minutes beginning at 11:45 AM. Thank you for the opportunity to participate in the care of this patient. Yolanda Funez PT, DPT, CLT [facility] [place], [place]
--- NOTE | 2022-10-19 15:24 | CHAPLAIN ---
Denise was up in the recliner when I visited. She told me about her knee surgery and expecting to be discharged later today. Denise lives in [place]. This is her second knee surgery.
== END 2022-10-19 10:10 | disposition home or self-care (01) ==
LOC: MS 10-19 09:50 → SUR 10-24 08:29 → MS 10-24 08:29
PROVIDERS: Admitting Provider Student in an Organized Health Care Education/Training Program; PCP Family Medicine; Visit Provider Student in an Organized Health Care Education/Training Program
PROC: (CPT 27447; principal; 2022-10-18 08:30)
DX: M17.11 Unilateral primary osteoarthritis, right knee (principal); K21.9 Gastro-esophageal reflux disease without esophagitis; R73.03 Prediabetes; E55.9 Vitamin D deficiency, unspecified; Z96.652 Presence of left artificial knee joint
CPT/HCPCS: 27447; 20985; 76942; 97110; 97162; 97530; G0378; J0131; J0171; J0690; J1100; J1170; J1885; J2001; J2250; J2405; J2704; J8540

== ENCOUNTER 2022-11-02 11:18 | Outpatient (CLI) | payer OTHER, SELFPAY ==
--- NOTE | 2022-11-02 11:00 | DI.RAD_ITS ---
Exam(s) XR STANDING ALIGNMENT EXAM: XR STANDING ALIGNMENT CLINICAL HISTORY: FIRST POST OP RIGHT TKR. TECHNIQUE: 2D digital imaging was performed. COMPARISON: CR XR STANDING ALIGNMENT from 06/01/2022 FINDINGS: There has been interval placement of a right knee prosthesis which appears to be in satisfactory posi tion alignment on these views. The long stem prosthesis in the opposite-left knee also appears unchanged No evidence of fracture or loosening at prosthesis levels. Findings related to the distal shaft comp onent in the left tibia unchanged. Hips appear unremarkable as do the ankles. IMPRESSION: As above. DATA REPOSITORY: RADIATION DOSE DELIVERED:
--- NOTE | 2022-11-02 11:26 | DI.RAD_ITS ---
Exam(s) XR KNEE RT 1V EXAM: XR KNEE RT 1V CLINICAL HISTORY: FIRST POST OP RIGHT TKR. TECHNIQUE: 2D digital imaging was performed. COMPARISON: CR XR KNEE RT 1V from 06/01/2022 FINDINGS: Single lateral view of the right knee: Satisfactory position alignment of the components of the right knee prosthesis. No fracture or loose bret evident. IMPRESSION: Satisfactory appearance DATA REPOSITORY: RADIATION DOSE DELIVERED:
== END 2022-11-02 11:19 | disposition home or self-care (01) ==
LOC: DIORS 11:18
PROVIDERS: PCP Family Medicine; Referring Provider Family Medicine; Visit Provider Student in an Organized Health Care Education/Training Program
DX: Z96.651 Presence of right artificial knee joint (principal); Z47.1 Aftercare following joint replacement surgery
CPT/HCPCS: 73560; 77073

== ENCOUNTER 2023-03-07 11:22 | Outpatient (REF) | payer OTHER, SELFPAY ==
[2023-03-07 15:55] LABS: ALT 17 U/L (14-59); AST 16 U/L (15-37); Albumin 3.7 g/dL (3.4-5.0); Alkaline Phosphatase 74 U/L (46-116); Anion Gap 4.9 mmol/L (3-11); BUN 21 mg/dL (7-18); Bilirubin, Total 0.4 mg/dL (0.2-1.0); CO2 31.1 mmol/L (21.0-32.0); CREATININE 0.9 mg/dL (0.55-1.02); Calcium 9.2 mg/dL (8.5-10.1); Chloride 105 mmol/L (98-107); Estimated GFR 72.28 (mL/min/1.73m2); Glucose 104 mg/dL (74-106); Potassium 4.1 mmol/L (3.5-5.1); Sodium 141 mmol/L (136-145)
== END 2023-03-07 11:23 | disposition home or self-care (01) ==
LOC: NCHCN 11:22
PROVIDERS: PCP Family Medicine; Visit Provider Family Medicine
DX: I10 Essential (primary) hypertension (principal); R73.03 Prediabetes
CPT/HCPCS: 80053; 83036

== ENCOUNTER 2023-03-14 16:31 | Outpatient (REF) | payer OTHER, SELFPAY ==
--- NOTE | 2023-03-14 14:45 | PAPFT_PTH ---
PATIENT: Trang Hunt LOC: [facility]#:[id number] AGE/SX: 62/F ROOM: RE03/14/[address]: Tea Porter : 1960 BED: DIS: 03/14/2023 SPEC #: [id number] RECD: 03/15/23 12:47 STATUS: MC REElpidio #: [id number] NINA: 03/14/23 14:[address]: Tea Porter DEPT: [facility] Cytology RECD BY: Renee Rogel Tissues: 1 - CX/ENDOCX FOR PAP SMEARS Procedures: PAP THIN PREP/UVM Screening HPV DNA PROBE Comments: [id number]
== END 2023-03-14 16:32 | disposition home or self-care (01) ==
LOC: NCHCN 16:31
PROVIDERS: PCP Family Medicine; Visit Provider Family Medicine
DX: Z12.4 Encounter for screening for malignant neoplasm of cervix (principal); Z11.51 Encounter for screening for human papillomavirus (HPV)
CPT/HCPCS: 88142; 87624

== ENCOUNTER → 2023-07-27 01:22 | Outpatient (CLI) | payer OTHER, SELFPAY ==
--- NOTE | 2023-07-27 | DI.MAMMO_ITS ---
Exam(s) MAMMO SCREENING EXAM: MAMMO SCREENING CLINICAL HISTORY: SCREENING, Z12.31 TECHNIQUE: Mammograms were interpreted according to the usual protocol including computer analysis w [employer] CAD system, tomosynthesis and C-view imaging. COMPARISON: 2018 and 2020 FINDINGS: The breasts are composed of scattered fibroglandular densities, Breast Density category B. No suspicious masses or suspicious microcalcifications are seen. No skin thickening or abnormal axillary lymph nodes are seen. There has been no significant change from prior exams. IMPRESSION: BI-RADS Category 1, Negative mammogram Yearly screening mammography is recommended. Breast Density - Category B, scattered fibroglandular densities. A negative radiographic report should not delay biopsy if a dominant or clinically suspicious mass is present. Up to ten percent of cancers are not identified on mammography. A negative report may reinforce clinical impression. Adenosis and dense breasts may obscure an underlying neoplasm. False positive reports average 6 to 10%. Patient will receive a letter notifying them of these results.
== END ==
PROVIDERS: PCP Family Medicine; Visit Provider Family Medicine
DX: Z12.31 Encounter for screening mammogram for malignant neoplasm of breast (principal)
CPT/HCPCS: 77063; 77067

== ENCOUNTER 2023-11-05 11:31 | Outpatient (CLI) | payer OTHER, SELFPAY ==
--- NOTE | 2023-11-05 08:34 | DI.RAD_ITS ---
Exam(s) XR KNEE RT 3V AP,LAT,BAO EXAM: XR KNEE RT 3V AP,LAT,BAO CLINICAL HISTORY: s/p right TKA. TECHNIQUE: 2D digital imaging was performed. Three images were obtained. AP, lateral and merchant's views were obtained. COMPARISON: CR XR KNEE RT 1V from 11/02/2022 FINDINGS: BONES: There are stable post operative changes of a right total knee replacement present. No fractur e or dislocation. JOINTS: The orthopedic hardware is in good position. No evidence of hardware loosening. SOFT TISSUE: Normal. IMPRESSION: Stable right total knee replacement. DATA REPOSITORY: RADIATION DOSE DELIVERED:
== END 2023-11-05 11:32 | disposition home or self-care (01) ==
LOC: DIORS 11:31
PROVIDERS: PCP Family Medicine; Referring Provider Family Medicine; Visit Provider Physician Assistant
DX: Z96.651 Presence of right artificial knee joint (principal)
CPT/HCPCS: 73562

== ENCOUNTER 2023-11-20 11:50 | Outpatient (CLI) | payer OTHER, SELFPAY ==
--- NOTE | 2023-11-20 08:45 | DI.RAD_ITS ---
Exam(s) XR SHOULDER RT COMPLETE 2+V EXAM: XR SHOULDER RT COMPLETE 2+V CLINICAL HISTORY: RIGHT SHOULDER PAIN. TECHNIQUE: 2D digital imaging was performed of the right shoulder. Three images were obtained. Gra lg and axillary views were obtained. COMPARISON: CR XR SHOULDER RT COMPLETE 2+V from 12/28/2021 FINDINGS: BONES: No acute fracture is present. No bony destructive lesion is seen. JOINTS: No dislocation present. There are mild degenerative changes seen at both the acromioclavicula r and glenohumeral joints. Spurs are seen at the undersurface of the distal clavicle. There also ap pears to be some spurs at the acromion. Soft tissue calcifications are adjacent to the superior aspe ct of the humeral head. SOFT TISSUE: Normal. IMPRESSION: Degenerative changes of the shoulder. DATA REPOSITORY: RADIATION DOSE DELIVERED:
== END 2023-11-20 11:51 | disposition home or self-care (01) ==
LOC: DIORS 11:51
PROVIDERS: PCP Family Medicine; Visit Provider Student in an Organized Health Care Education/Training Program
DX: M12.811 Other specific arthropathies, not elsewhere classified, right shoulder
CPT/HCPCS: 73030

== ENCOUNTER 2024-02-25 20:41 | Emergency (ER) | payer OTHER, SELFPAY ==
[2024-02-25] VITALS (10 sets, daily range): BP systolic 142–181; BP diastolic 68–89; PULSE 62–68; RESP 11–16; TEMP 36.9; O2SAT 92–97
--- NOTE | 2024-02-25 20:45 | RT.EKG_ITS ---
APPROVED REPORT Exam: Resting ECG Reason for Exam: dizzy 63 y/o Patient Location: E HR:65 bpm ECG Measurements Heart Rate 65 AXIS ID 141 P 44 QRSd 114 QRS 6 QT 416 T 48 QTc 435 Conclusion Sinus rhythm 65 normal axis no stemi
--- NOTE | 2024-02-25 21:15 | DI.RAD_ITS ---
Exam(s) XR CHEST 2V PA LATERAL EXAM: XR CHEST 2V PA LATERAL CLINICAL HISTORY: dizziness. TECHNIQUE: 2D digital imaging was performed. COMPARISON: No exams were available for comparison FINDINGS: 2 views: Heart size is normal. The mediastinum is not widened. Right lung is clear. There is subsegmental platelike atelectasis or scarring in left lung base. No confluent infiltrates. No pleural effusions. No CHF. IMPRESSION: No acute pulmonary findings.Subsegmental platelike atelectasis in the left lung base. DATA REPOSITORY: RADIATION DOSE DELIVERED:
--- NOTE | 2024-02-25 21:19 | ED.GENADUL_ITS ---
Discharge Plan Discharge Details Chief Complaint: Dizzy/Sync Primary Care Provider: Tea Porter ED Provider: Brendon Barton Home Meds and New Rx's Prescriptions: No Action lisinopril 10 mg tablet 10 mg PO DAILY metformin 500 mg tablet 1,000 mg PO DAILY ropinirole 1 mg tablet 1 mg PO QHS Rx Instructions: administer 1-3 hours before bedtime vitamin B complex [B Complex-Vitamin B12] Tablet 1 tab PO DAILY omega 3-ofg-lne-fish oil [Fish Oil] 300-1,000 mg capsule 1 cap PO DAILY Digestive Advantage Advanced 10 billion cell capsule 10 cell PO DAILY multivitamin Tablet 1 tab PO DAILY ascorbic acid (vitamin C) 500 mg tablet 500 mg PO DAILY calcium carbonate [Calcium 500] 500 mg calcium (1,250 mg) tablet,chewable 500 mg PO DAILY omeprazole 20 mg capsule,delayed release(DR/EC) 20 mg PO DAILY darifenacin 7.5 mg tablet extended release 24 hr 15 mg PO DAILY folic acid 1 mg tablet 1 mg PO DAILY hydrochlorothiazide 25 MG tablet 25 mg PO DAILY cholecalciferol (vitamin D3) [Vitamin D3] 1,000 UNIT tablet,chewable 1,000 unit PO DAILY acetaminophen 500 mg tablet 1,000 mg PO Q8H PRN (Reason: pain) Qty: 90 3RF HPI General Date/Time Provider Initiated Documentation: 02/25/24 21:11 . HPI Narrative: 63 year-old female presents to ED today by POV/ambulating with a chief complaint of dizziness, L arm tingling, some visual changes with onset tonight about an hour before arrival. Quality described as near syncope, no radiation to palpitations, sweating, chest pain, shortness of breath, does endorse a lot of stress lately. Severity is described as moderate. Palliating factors include nothing specific. Provoking factors include nothing specific. Events leading up to the incident/Associated Symptoms: Patient denies known cardiac history, endorses hypertension. Patient not anticoagulated. Related Data Home Medications ?Medication ?Instructions ?Recorded ?Confirmed hydrochlorothiazide 25 mg tablet 25 mg PO DAILY 07/31/12 02/25/24 cholecalciferol (vitamin D3) 25 1,000 unit PO DAILY 08/02/12 02/25/24 mcg (1,000 unit) chewable tablet (Vitamin D3) Jacyacidoph, paracasei,B. lactis 10 10 cell PO DAILY 07/19/21 02/25/24 billion cell capsule (Digestive Advantage Advanced Probiotic) ascorbic acid (vitamin C) 500 mg 500 mg PO DAILY 07/19/21 02/25/24 tablet calcium carbonate (Calcium 500) 500 mg PO DAILY 07/19/21 02/25/24 lisinopril 10 mg tablet 10 mg PO DAILY 07/19/21 02/25/24 metformin 500 mg tablet 1,000 mg PO DAILY 07/19/21 02/25/24 multivitamin 1 tab PO DAILY 07/19/21 02/25/24 omega 1-qob-cof-fish oil 300 1 cap PO DAILY 07/19/21 02/25/24 mg-1,000 mg capsule (Fish Oil) omeprazole 20 mg capsule,delayed 20 mg PO DAILY 07/19/21 02/25/24 release ropinirole 1 mg tablet 1 mg PO QHS 07/19/21 02/25/24 vitamin B complex (B 1 tab PO DAILY 07/19/21 02/25/24 Complex-Vitamin B12 tablet) darifenacin 7.5 mg tablet,extended 15 mg PO DAILY 11/22/21 02/25/24 release 24 hr folic acid 1 mg tablet 1 mg PO DAILY 11/22/21 02/25/24 acetaminophen 500 mg tablet 1,000 mg (2 x 500 mg) PO Q8H PRN 10/18/22 02/25/24 pain #90 tabs Previous Rx's ?Medication ?Instructions ?Recorded acetaminophen 500 mg tablet 1,000 mg (2 x 500 mg) PO Q8H PRN 10/18/22 pain #90 tabs Allergies Allergy/AdvReac Type Severity Reaction Status Date / Time Penicillins Allergy Intermediate Hives Verified 02/25/24 20:58 topiramate (From Topamax) AdvReac Unknown Per pt. Verified 02/25/24 20:58 states made me depressed General Stated Complaint: Dizzy/Sync MAMADOU: 3 Review of Systems All systems reviewed & are unremarkable except as noted in HPI and below Exam Narrative Exam Narrative: GENERAL APPEARANCE: Well-nourished, non-toxic, awake and alert, atraumatic, no acute distress. SKIN: Warm, pink, dry, intact, without rashes/lesions/ulcerations. HEAD: Normocephalic, atraumatic, normal hair distribution for gender/age. EYES: Normal conjunctiva, no exudates on lids/lashes. ENT: Nares patent, no circumoral cyanosis, no facial swelling NECK: Supple, trachea midline, painless cervical ROM. LUNGS/CHEST: Lungs CTA bilaterally, non-labored respirations, normal A/P diameter, symmetrical expansion, no chest wall deformity HEART (CV/PV): Regular rate and rhythm without murmur, no peripheral edema, no JVD. ABDOMEN: Soft, non-distended, no guarding. MSK: Normal ROM, no swelling/deformity to bilateral UEs or LEs, moving all extremities without weakness, no cyanosis, spine midline without tenderness, normal curvature. NEURO: Mental Status AAOx4 - alert to person, place, time, events No facial droop, no forehead involvement. Motor: No focal weakness - strength 5/5 in bilateral UEs and LEs, proximal and distal, symmetric. Sensory: sensation intact to light touch globally. Gait normal: patient ambulated without ataxia into ED room. PSYCH: euthymic, cooperative, pleasant, appropriate speech Course Vital Signs Vital signs: Vital Signs Temperature 36.9 C 02/25/24 20:53 Pulse 66 02/25/24 20:53 Respiratory Rate 14 02/25/24 20:53 Blood Pressure 181/89 H 02/25/24 20:53 Pulse Oximetry 96 02/25/24 20:53 Temperature 36.9 C 02/25/24 20:53 Temperature Source Temporal Artery Scan 02/25/24 20:53 Pulse 66 02/25/24 20:53 Respiratory Rate 16 02/25/24 21:01 Respiratory Effort Normal, Non-Labored 02/25/24 21:00 Respiratory Depth Normal 02/25/24 21:01 Respiratory Pattern Normal 02/25/24 21:01 Blood Pressure 181/89 H 02/25/24 20:53 Blood Pressure Position Sitting 02/25/24 20:53 Pulse Oximetry 96 02/25/24 20:53 Oxygen Delivery Method Room Air 02/25/24 20:53 Oxygen Flow Rate 0 02/25/24 20:53 Pain Level 0 02/25/24 20:53 Medical Decision Making This dictation utilizes [id number] dictation software and may contain unedited grammatical errors. 63 year-old female presents to ED today by POV/ambulating with a chief complaint of dizziness, L arm tingling, some visual changes with onset tonight about an hour before arrival. Quality described as near syncope, no radiation to palpitations, sweating, chest pain, shortness of breath, does endorse a lot of stress lately. Severity is described as moderate. Palliating factors include nothing specific. Provoking factors include nothing specific. Events leading up to the incident/Associated Symptoms: Patient denies known cardiac history, endorses hypertension. Family and social history: was recently in the hospital for a month for heart attack, endorses a lot of emotional stress over this. Pertinent exam findings / vital signs include benign cardiopulmonary exam, benign abdomen, neuro intact. Differential / pathologies of concern include ACS, anxiety, vasovagal near syncope, electrolyte abnormality, thyroid pathology. Diagnostic studies of: -CBC, CMP, lipase, serial troponins, TSH, magnesium, x-ray chest, EKG. -CBC shows no acute abnormality -CMP shows no actionable abnormality with mildly elevated creatinine at 1.2 -Initial troponin negative -Lipase negative -TSH is elevated at 6.55 with a normal T4 -Magnesium within normal limits -Chest x-ray shows no acute abnormality by my read, V rad read pending -EKG without signs of STEMI, no ectopy, normal intervals Interventions of: -324 mg ASA. ED Course/Assessment/Plan: 63-year-old female presents with onset of dizziness this evening while at rest around the house, states her has been in the hospital from a heart attack for the past month and she has been highly emotionally stressed. She has no cardiac history, initial troponin negative, she does have elevated TSH. I suspect this is related to vasovagal near syncope but she does have a possibility of an atypical pattern of [place] as a female with left arm numbness and tingling and dizziness with visual change noted. Patient signed out to oncoming provider Dr. Janine Bailey with repeat troponins pending. Disposition of Dizziness of Unknown Cause. Patient verbalized understanding of the plan and return to ED criteria and engaged in shared decision making. Medical Records Medical records reviewed: Yes I reviewed the patient's medical records. Imaging Data Radiologic Study: Attestation: I personally reviewed and interpreted this imaging study as follows: Imaging: X-Ray My impression: No acute abnormality by my read, no widened mediastinum Lab Data Lab results reviewed: Yes I reviewed the patient's lab results. Labs: Laboratory Tests Range/Units 02/24/ 21:18 WBC (4.4-10.8) 10^3/uL 8.27 RBC (3.93-5.22) 10^6/uL 4.54 Hgb (11.2-15.7) g/dL 13.1 Hct (36.0-46.0) % 41.0 MCV (80-95) fL 90 MCH (27.0-33.0) pg 28.9 MCHC (32.0-36.0) % 32.0 RDW (11.7-14.6) % 13.2 Plt Count (130-400) 10^3/uL 214 MPV (8.0-11.0) fL 9.9 Immature Gran % % 0.4 Neutrophils % % 60.6 Lymphocytes % % 29.5 Monocytes % % 6.0 Eosinophils % % 2.9 Basophils % % 0.6 Nucleated RBC % (0.0-0.3) % 0.0 Absolute Neutrophils (1.2-6.7) 10^3/uL 5.01 Absolute Lymphocytes (1.2-3.4) 10^3/uL 2.44 Absolute Monocytes (0.1-0.8) 10^3/uL 0.50 Absolute Eosinophils (0.0-0.7) 10^3/uL 0.24 Absolute Basophils (0.0-0.2) 10^3/uL 0.05 Sodium (136-145) mmol/L 143 Potassium (3.5-5.1) mmol/L 3.6 Chloride (98-107) mmol/L 106 Carbon Dioxide (21.0-32.0) mmol/L 30.7 Anion Gap (3-11) mmol/L 6.3 BUN (7-18) mg/dL 16 Creatinine (0.55-1.02) mg/dL 1.2 H Est GFR (CKD-EPI 2020) (mL/min/1.73m2) 50.86 Glucose (74-106) mg/dL 104 Calcium (8.5-10.1) mg/dL 8.7 Magnesium (1.8-2.4) mg/dL 1.8 Total Bilirubin (0.2-1.0) mg/dL 0.29 AST (15-37) U/L 14 L ALT (14-59) U/L 16 Alkaline Phosphatase (46-116) U/L 95 Troponin I (<or=51) ng/L 8 Total Protein (6.4-8.2) g/dL 7.2 Albumin (3.4-5.0) g/dL 3.9 Lipase (16-77) U/L 34 TSH (0.36-3.74) uIU/mL 6.55 H Free T4 (0.76-1.46) ng/dL 0.99 Quality:SDOH Health Related Social Needs: No Data to Display PFSH All Active Problems (Updated 12/01/22 @ 12:35 by Madiha Paul) Iliotibial band syndrome affecting right lower leg (Acute) Pes anserinus bursitis of right knee (Acute) Screening for colon cancer (Acute) Serrated adenoma of colon (Acute) Hyperplastic colon polyp (Acute) Rotator cuff tear arthropathy of right shoulder (Acute) Medical History (Updated 12/01/22 @ 12:35 by Madiha Paul) Traumatic tear of right rotator cuff Thyroid nodule Obesity 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) HTN (hypertension) GERD (gastroesophageal reflux disease) Ganglion cyst Surgical History (Updated 01/08/23 @ 08:52 by MANOJ Lazcano) History of total right knee replacement (10/18/22) History of colonoscopy (~11/2021) Hx of foot surgery History of total knee arthroplasty (L) Social History Smoking/Tobacco Use Status: Former Tobacco Use Quit Date: 04/09/04 Smoking risk assessment performed?: Yes Alcohol Intake: current Alcohol Intake frequency: holidays/special occasions only Drug use: Never Substance use type: does not use Housing: house Current gender identity: female Do you feel safe at home: Yes Do you feel safe in your relationship?: Yes
[2024-02-25 21:40] LABS: Abs Immature Grans 0.03 10^3/uL (0.0-0.06); Absolute Basophil Count 0.05 10^3/uL (0.0-0.2); Absolute Eosinophil Count 0.24 10^3/uL (0.0-0.7); Absolute Lymphocyte Count 2.44 10^3/uL (1.2-3.4); Absolute Neutrophil Count 5.01 10^3/uL (1.2-6.7); Basophils % 0.6 %; Eosinophils % 2.9 %; HGB 13.1 g/dL (11.2-15.7); Immature Grans % 0.4 %; Lymphocytes % 29.5 %; MCH 28.9 pg (27.0-33.0); MCV 90 fL (80-95); MPV 9.9 fL (8.0-11.0); Neutrophils % 60.6 %; Platelet Count 214 10^3/uL (130-400); RBC 4.54 10^6/uL (3.93-5.22); RDW 13.2 % (11.7-14.6); RDW-SD 43.8 fL; WBC 8.27 10^3/uL (4.4-10.8)
[2024-02-25] MEDS: Aspirin 81 MG CHEW 324 MG CH (21:53)
[2024-02-25 21:58] LABS: ALT 16 U/L (14-59); AST 14 U/L (15-37); Albumin 3.9 g/dL (3.4-5.0); Alkaline Phosphatase 95 U/L (46-116); Anion Gap 6.3 mmol/L (3-11); BUN 16 mg/dL (7-18); Bilirubin, Total 0.29 mg/dL (0.2-1.0); CO2 30.7 mmol/L (21.0-32.0); CREATININE 1.2 mg/dL (0.55-1.02); Calcium 8.7 mg/dL (8.5-10.1); Chloride 106 mmol/L (98-107); Estimated GFR 50.86 (mL/min/1.73m2); Glucose 104 mg/dL (74-106); Lipase 34 U/L (16-77); Magnesium 1.8 mg/dL (1.8-2.4); Potassium 3.6 mmol/L (3.5-5.1); Sodium 143 mmol/L (136-145); TSH (W/Ref FT4) 6.55 uIU/mL (0.36-3.74); Total Protein 7.2 g/dL (6.4-8.2); Troponin I 8 ng/L (<or=51)
[2024-02-25 22:15] LABS: FREE T4 0.99 ng/dL (0.76-1.46)
[2024-02-25 23:02] LABS: Troponin I 8 ng/L (<or=51)
--- NOTE | 2024-02-25 23:06 | DI.VRAD_ITS ---
PROCEDURE INFORMATION: Exam: XR Chest Exam date and time: 02/25/2024 9:41 PM Age: 63 years old Clinical indication: Other: Dizziness, tingly TECHNIQUE: Imaging protocol: Radiologic exam of the chest. Views: 2 views. COMPARISON: CR XR SHOULDER RT COMPLETE 2+V 11/20/2023 8:54 AM FINDINGS: Lungs: Unremarkable. No consolidation. Pleural spaces: Unremarkable. No pleural effusion. No pneumothorax. Heart/Mediastinum: Unremarkable. No cardiomegaly. Bones/joints: Mild degenerative changes of the spine. No acute fracture IMPRESSION: No acute disease Dictated and Authenticated by: Burak Gastelum MD. Ordering:JESUS MANUEL Olivas MD
--- NOTE | 2024-02-26 22:15 | W.EDPROG ---
Date of service: 02/25/24 Time of Service: 23:00 Medical Decision Making Pt was initially qued for signout, however ended up being discharged by offgoing provider. Quality:SDOH Health Related Social Needs: No Data to Display Discharge Plan Disposition Patient Disposition: Home Discharge Details Clinical Impression: Dizziness of unknown cause Primary Care Provider: Tea Porter ED Provider: Brendon Barton Home Meds and New Rx's Prescriptions: No Action lisinopril 10 mg tablet 10 mg PO DAILY metformin 500 mg tablet 1,000 mg PO DAILY ropinirole 1 mg tablet 1 mg PO QHS Rx Instructions: administer 1-3 hours before bedtime vitamin B complex [B Complex-Vitamin B12] Tablet 1 tab PO DAILY omega 9-mfm-hyi-fish oil [Fish Oil] 300-1,000 mg capsule 1 cap PO DAILY Digestive Advantage Advanced 10 billion cell capsule 10 cell PO DAILY multivitamin Tablet 1 tab PO DAILY ascorbic acid (vitamin C) 500 mg tablet 500 mg PO DAILY calcium carbonate [Calcium 500] 500 mg calcium (1,250 mg) tablet,chewable 500 mg PO DAILY omeprazole 20 mg capsule,delayed release(DR/EC) 20 mg PO DAILY darifenacin 7.5 mg tablet extended release 24 hr 15 mg PO DAILY folic acid 1 mg tablet 1 mg PO DAILY hydrochlorothiazide 25 MG tablet 25 mg PO DAILY cholecalciferol (vitamin D3) [Vitamin D3] 1,000 UNIT tablet,chewable 1,000 unit PO DAILY acetaminophen 500 mg tablet 1,000 mg PO Q8H PRN (Reason: pain) Qty: 90 3RF Discharge Instructions Instructions: Dizziness, Adult ED Additional Instructions: You were seen in the emergency department for sudden onset of dizziness with left arm numbness and tingling, we performed troponin test today which shows no damage to the heart, you have no cardiac history and it is reasonable for you to follow-up with outpatient cardiology visit for baseline cardiology studies if warranted by your PCP provider. Your chest x-ray shows no acute abnormality, your labs show a mild elevation of one of your kidney enzymes indicating you could be somewhat slightly dehydrated, you have also been through a lot of emotional stress lately and this may be a panic response. Please return to the ER for any emergent concerns including chest pain, near fainting, shortness of breath. Referrals: Tea Porter MD [Primary Care Provider] - Discharge Data Discharge Date/Time-TO BE ENTERED AT DEPARTURE: 02/25/24 23:11
== END 2024-02-25 23:11 | disposition home or self-care (01) ==
PROVIDERS: Emergency Provider Physician Assistant; PCP Family Medicine
DX: R42 Dizziness and giddiness (principal); R55 Syncope and collapse; Z79.899 Other long term (current) drug therapy; Z79.84 Long term (current) use of oral hypoglycemic drugs; I10 Essential (primary) hypertension
CPT/HCPCS: 00123; 36415; 80053; 83690; 93005; 99285; 71046; 83735; 84439; 84443; 84484; 85025; 93010

== ENCOUNTER 2024-03-17 16:19 | Outpatient (REF) | payer OTHER, SELFPAY ==
[2024-03-17 20:53] LABS: Anion Gap 10.4 mmol/L (3-11); BUN 16 mg/dL (7-18); CO2 27.6 mmol/L (21.0-32.0); Calcium 9.1 mg/dL (8.5-10.1); Chloride 104 mmol/L (98-107); Folate 9.1 ng/mL (8.6-20.0); Glucose 96 mg/dL (74-106); Potassium 3.7 mmol/L (3.5-5.1); Sodium 142 mmol/L (136-145); Vitamin B12 864 pg/mL (193-986)
== END 2024-03-17 16:20 | disposition home or self-care (01) ==
LOC: NCHCN 16:19
PROVIDERS: PCP Family Medicine; Visit Provider Family Medicine
DX: R20.2 Paresthesia of skin (principal); I10 Essential (primary) hypertension; R73.03 Prediabetes
CPT/HCPCS: 80048; 82607; 82746; 83036

== ENCOUNTER 2024-04-10 15:44 | Outpatient (CLI) | payer OTHER, SELFPAY ==
--- NOTE | 2024-04-10 09:43 | DI.RAD_ITS ---
Exam(s) XR KNEE RT 3V AP,LAT,BAO EXAM: XR KNEE RT 3V AP,LAT,BAO CLINICAL HISTORY: eval continued lateral right knee pain. TECHNIQUE: 2D digital imaging was performed. COMPARISON: CR XR KNEE RT 3V AP,LAT,BAO from 11/05/2023 FINDINGS: 3 views There is stable position alignment of the femoral and tibial components of the prosthesis no fracture or loosening of these components evident. On the merchant's view there is again noted evidence of patellar resurfacing and patellar tilting but unchanged from 11/05/2023. IMPRESSION: Findings as above but unchanged radiographically from images of 11/05/2023. DATA REPOSITORY: RADIATION DOSE DELIVERED:
== END 2024-04-10 15:45 | disposition home or self-care (01) ==
LOC: DIORS 15:45
PROVIDERS: PCP Family Medicine; Visit Provider Student in an Organized Health Care Education/Training Program
DX: M76.31 Iliotibial band syndrome, right leg (principal); T84.84XA Pain due to internal orthopedic prosthetic devices, implants and grafts, initial encounter; Z96.651 Presence of right artificial knee joint
CPT/HCPCS: 73562

== ENCOUNTER 2024-06-09 12:22 | Outpatient (REF) | payer OTHER, SELFPAY ==
[2024-06-09 17:10] LABS: TSH (W/Ref FT4) 2.14 uIU/mL (0.36-3.74)
[2024-06-09 22:22] LABS: Thyroglobulin Antibody <15 U/mL (<=60); Thyroperoxidase Antibody <28 U/mL (<=60)
== END 2024-06-09 12:23 | disposition home or self-care (01) ==
LOC: NCHCN 12:22
PROVIDERS: PCP Family Medicine; Visit Provider Family Medicine
DX: R00.2 Palpitations (principal)
CPT/HCPCS: 86376; 84443; 86800

== ENCOUNTER 2024-08-08 02:15 | Outpatient (CLI) | payer OTHER, SELFPAY ==
--- NOTE | 2024-08-08 | DI.MAMMO_ITS ---
Exam(s) US BREAST RT LIMITED MG MAMMO DIAGNOSTIC BI EXAM: MG MAMMO DIAGNOSTIC BI CLINICAL HISTORY: RT BREAST PAIN, DIAGNOSTIC,N64.4. COMPARISON: 2015 through 2023 TECHNIQUE: Craniocaudal and mediolateral oblique Full Field Digital Mammography views of both breast s with Computer Aided Diagnosis followed by Tomosynthesis and right breast ultrasound. FINDINGS: Mammography/Tomosynthesis: Masses: None seen. Architectural Distortion: None seen. Microcalcifications: No suspicious pleomorphic-type are seen. Skin Thickening/Nipple Retraction: None. Right breast US: Echotexture: Normal appearance of the glandular tissue. Shadowing: No suspicious foci. Cyst: None. Solid lesions: None seen. Ductal dilation: None. IMPRESSION: 1. No evidence of malignancy is noted. 2. Unless there is more urgent need, follow-up screening mammography is recommended, as per [employer] guidelines. BI-RADS Category 1 - Negative Breast Density - Category B - There are scattered areas of fibroglandular density. Breast density Category C or D implies that the patient has dense breast tissue. Dense breast tissue can make it harder to find cancer on a mammogram. Dense breast tissue is also associated with an incr eased risk of breast cancer. This information about the result of the mammogram report was provided to the patient to raise their awareness. Use this report when you speak with the patient about their risks for breast cancer, which includes their family history. At that time, you may recommend additional screening tests (Ultrasoun d or MRI) as these tests may add significant information. A negative radiographic report should not delay biopsy if a dominant or clinically suspicious mass is present. Up to ten percent of cancers are not identified on mammography. A negative report may reinforce clinical impression. Adenosis and dense breasts may obscure an underlying neoplasm. False positive reports average 6 to 10%. Patient will receive a letter notifying them of these results.
== END 2024-08-08 02:35 ==
LOC: DI 02:16
PROVIDERS: PCP Family Medicine; Visit Provider Family Medicine
DX: Z12.31 Encounter for screening mammogram for malignant neoplasm of breast (principal); N64.4 Mastodynia
CPT/HCPCS: 76642; 77062; 77066; G0279

== ENCOUNTER 2024-12-30 10:18 | Day surgery (SDC) | payer OTHER, SELFPAY ==
[2024-12-30] VITALS (27 sets, daily range): BP systolic 88–128; BP diastolic 52–82; PULSE 55–89; RESP 8–24; TEMP 36–36.5; O2SAT 91–100; BMI 36.6
--- NOTE | 2024-12-30 07:37 | W.PREOPHP ---
Assessment and Plan Assessment and plan (1) Patellar clunk syndrome of right knee: Status: Acute (2) Painful total knee replacement, right: Status: Acute (3) Iliotibial band syndrome affecting right lower leg: Status: Acute Assessment and plan: Denise is 64-year-old female who has pain along the lateral aspect of the knee consistent with patellar clunk type syndrome with synovitis. I reviewed the surgery with her once again. Discussed the risk to include bleeding, infection, pain, stiffness, continued symptoms. Despite these risk, she elects to proceed. History of Present Illness Narrative: Denise is a 64-year-old female who presents today for her right knee. Unfortunately, she continues have some pain and crepitus about the right knee which is consistent with patellar clunk type syndrome with impinging lateral soft tissues. She also has arthrofibrosis. For this reason and the persistent symptoms I did offer arthroscopic synovectomy. Please see the previous office note for complete detailed history. Medically, she has had no changes to her history. She denies any chest pain or shortness of breath. 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) HTN (hypertension) GERD (gastroesophageal reflux disease) Ganglion cyst Surgical History History of total right knee replacement (10/18/22) History of colonoscopy (~11/2021) Hx of foot surgery x2 Hammer toe procedure (B) done separately History of total knee arthroplasty (L) Social History Smoking/Tobacco Use Status: Former Tobacco Use Quit Date: 04/09/04 Smoking risk assessment performed?: Yes Alcohol Intake: current Alcohol Intake frequency: other Drug use: Never Substance use type: does not use Details: drinks socially, less than once a month Housing: house Current gender identity: female Do you feel safe at home: Yes Do you feel safe in your relationship?: Yes Meds Allergies and Home Medications Allergies Allergy/AdvReac Type Severity Reaction Status Date / Time Penicillins Allergy Intermediate Hives Verified 12/30/24 10:35 topiramate (From Topamax) AdvReac Unknown Per pt. Verified 12/30/24 10:35 states made me depressed Home Medications ?Medication ?Instructions ?Recorded ?Confirmed ?Type hydrochlorothiazide 25 mg tablet 25 mg PO DAILY 07/31/12 12/30/24 History cholecalciferol (vitamin D3) 25 1,000 unit PO DAILY 08/02/12 12/30/24 History mcg (1,000 unit) chewable tablet (Vitamin D3) L.acidoph,paracasei,B.animalis 10 10 cell PO DAILY 07/19/21 12/30/24 History billion cell capsule (Digestive Advantage Advanced Probiotic) ascorbic acid (vitamin C) 500 mg 500 mg PO DAILY 07/19/21 12/30/24 History tablet calcium carbonate (Calcium 500) 500 mg PO DAILY 07/19/21 12/30/24 History lisinopril 10 mg tablet 10 mg PO DAILY 07/19/21 12/30/24 History metformin 500 mg tablet 1,000 mg PO DAILY 07/19/21 12/30/24 History multivitamin 1 tab PO DAILY 07/19/21 12/30/24 History omega 4-smd-rvi-fish oil 300 1 cap PO DAILY 07/19/21 12/30/24 History mg-1,000 mg capsule (Fish Oil) omeprazole 20 mg capsule,delayed 20 mg PO DAILY 07/19/21 12/30/24 History release ropinirole 1 mg tablet 1 mg PO QHS 07/19/21 12/30/24 History vitamin B complex (B 1 tab PO DAILY 07/19/21 12/30/24 History Complex-Vitamin B12 tablet) darifenacin 7.5 mg tablet,extended 15 mg PO DAILY 11/22/21 12/30/24 History release 24 hr folic acid 1 mg tablet 1 mg PO DAILY 11/22/21 12/30/24 History famotidine 20 mg tablet (Acid 20 mg PO DAILY 12/29/24 12/30/24 History Controller) semaglutide (weight loss) 1.7 1 mg subcut Q7D 12/29/24 12/29/24 History mg/0.75 mL subcutaneous pen injector (Kaushik) acetaminophen 500 mg tablet 500 mg PO Q6H PRN pain #60 tabs 12/30/24 Rx hydrocodone 5 mg-acetaminophen 325 1 tab PO Q6H PRN severe pain #6 12/30/24 Rx mg tablet tabs ibuprofen 600 mg tablet 600 mg PO TID PRN pain #60 tabs 12/30/24 Rx Exam Resp Effort & Inspection: normal respiratory effort Auscultation: clear to auscultation bilaterally Cardio Rate: regular rate Rhythm: regular rhythm
--- NOTE | 2024-12-30 10:47 | W.PM.DSUDISC ---
Date of service: 12/30/24 Discharge Plan Disposition Patient Disposition: Home Condition: Good Discharge Details Reason For Visit: Painful right TKA Attending Provider: Cj Stiles Primary Care Provider: Tea Porter Home Meds and New Rx's Prescriptions: New acetaminophen 500 mg tablet 500 mg PO Q6H PRN (Reason: pain) Qty: 60 2RF hydrocodone-acetaminophen 5-325 mg tablet 1 tab PO Q6H PRN (Reason: severe pain) Qty: 6 0RF Rx Instructions: Take one tablet up to every 6 hours as needed for severe postoperative pain ibuprofen 600 mg tablet 600 mg PO TID PRN (Reason: pain) Qty: 60 0RF Continued lisinopril 10 mg tablet 10 mg PO DAILY metformin 500 mg tablet 1,000 mg PO DAILY ropinirole 1 mg tablet 1 mg PO QHS Patient Comments: PRN Rx Instructions: administer 1-3 hours before bedtime vitamin B complex [B Complex-Vitamin B12] Tablet 1 tab PO DAILY omega 4-ahf-hvp-fish oil [Fish Oil] 300-1,000 mg capsule 1 cap PO DAILY Digestive Advantage Advanced 10 billion cell capsule 10 cell PO DAILY multivitamin Tablet 1 tab PO DAILY ascorbic acid (vitamin C) 500 mg tablet 500 mg PO DAILY calcium carbonate [Calcium 500] 500 mg calcium (1,250 mg) tablet,chewable 500 mg PO DAILY omeprazole 20 mg capsule,delayed release(DR/EC) 20 mg PO DAILY Patient Comments: AM darifenacin 7.5 mg tablet extended release 24 hr 15 mg PO DAILY folic acid 1 mg tablet 1 mg PO DAILY hydrochlorothiazide 25 MG tablet 25 mg PO DAILY cholecalciferol (vitamin D3) [Vitamin D3] 1,000 UNIT tablet,chewable 1,000 unit PO DAILY famotidine [Acid Controller] 20 mg tablet 20 mg PO DAILY Patient Comments: PM Wegovy 1.7 mg/0.75 mL pen injector 1 mg SUBCUT Q7D Discontinued acetaminophen 500 mg tablet 1,000 mg PO Q8H PRN (Reason: pain) Qty: 90 3RF Discharge Instructions Stand Alone Forms: Anesthesia Discharge Inst[facility], [facility]aney ([facility]) Referrals: Cj Stiles MD [ [facility] STAFF PHYSICIAN, Orthopaedic Surgical] Equipment/Supplies: Partial Weight Bearing Crutches Activity:: Elevate Remove Dressings/Wound Care:: 48 hours Shower/Bathe:: 48 hours Diet:: As Tolerated Discharge Orders Discharge Orders: Discharge Order (Routine); Ordered 12/30/24 Ordered By: Madiha Paul
[2024-12-30] MEDS: Celecoxib 200 MG CAP 400 MG PO (11:05)
[2024-12-30] MEDS: Lactated Ringers 1,000 ML 80 ML IV (11:05)
[2024-12-30] MEDS: Acetaminophen 500 MG TAB 1000 MG PO (11:06)
--- NOTE | 2024-12-30 11:41 | W.ANESPRE ---
General Info Date of Service Date Performed: 12/30/24 Height: 5 ft 5 in Weight: 100 kg Body Mass Index (BMI): 36.6 Surgical Procedure: Operation Date: 12/30/24 12:40 Proposed Procedure Side Surgeon p Knee Arthroscopy, Synovectomy Right Cj Stiles MD Meds Allergies and Home Medications Allergies Allergy/AdvReac Type Severity Reaction Status Date / Time Penicillins Allergy Intermediate Hives Verified 12/30/24 10:35 topiramate (From Topamax) AdvReac Unknown Per pt. Verified 12/30/24 10:35 states made me depressed Home Medication ?Medication ?Instructions ?Recorded hydrochlorothiazide 25 mg tablet 25 mg PO DAILY 07/31/12 cholecalciferol (vitamin D3) 25 1,000 unit PO DAILY 08/02/12 mcg (1,000 unit) chewable tablet (Vitamin D3) L.acidoph,paracasei,B.animalis 10 10 cell PO DAILY 07/19/21 billion cell capsule (Digestive Advantage Advanced Probiotic) ascorbic acid (vitamin C) 500 mg 500 mg PO DAILY 07/19/21 tablet calcium carbonate (Calcium 500) 500 mg PO DAILY 07/19/21 lisinopril 10 mg tablet 10 mg PO DAILY 07/19/21 metformin 500 mg tablet 1,000 mg PO DAILY 07/19/21 multivitamin 1 tab PO DAILY 07/19/21 omega [id number]-fish oil 300 1 cap PO DAILY 07/19/21 mg-1,000 mg capsule (Fish Oil) omeprazole 20 mg capsule,delayed 20 mg PO DAILY 07/19/21 release ropinirole 1 mg tablet 1 mg PO QHS 07/19/21 vitamin B complex (B 1 tab PO DAILY 07/19/21 Complex-Vitamin B12 tablet) darifenacin 7.5 mg tablet,extended 15 mg PO DAILY 11/22/21 release 24 hr folic acid 1 mg tablet 1 mg PO DAILY 11/22/21 famotidine 20 mg tablet (Acid 20 mg PO DAILY 12/29/24 Controller) semaglutide (weight loss) 1.7 1 mg subcut Q7D 12/29/24 mg/0.75 mL subcutaneous pen injector (Wegovy) acetaminophen 500 mg tablet 500 mg PO Q6H PRN pain #60 tabs 12/30/24 hydrocodone 5 mg-acetaminophen 325 1 tab PO Q6H PRN severe pain #6 12/30/24 mg tablet tabs ibuprofen 600 mg tablet 600 mg PO TID PRN pain #60 tabs 12/30/24 Current Visit Medications: Current Medications Generic Name Dose Route Start Last Admin Trade Name Twanq PRN Reason Stop Dose Admin Acetaminophen 1,000 mg 12/30/24 06:00 12/30/24 11:06 Acetaminophen 500 Mg Tab PO 12/30/24 23:59 1,000 mg PREOP ELENA Administration Acetaminophen 650 mg 12/30/24 10:46 Acetaminophen 325 Mg Tab PO 01/29/25 10:45 Q4H PRN PRN Hydrocodone Bitart/Acetaminophen 0 tab 12/30/24 10:46 Hydrocodone 5/Acetaminophen 325 Tab PO 01/29/25 10:45 Q3H PRN PRN Pain Celecoxib 400 mg 12/30/24 06:00 12/30/24 11:05 Celecoxib 200 Mg Cap PO 12/30/24 23:59 400 mg PREOP ELENA Administration Ringer's Solution 1,000 mls @ 80 mls/hr 12/30/24 06:00 12/30/24 11:05 IV 12/30/24 23:59 80 mls/hr INFUSION ELENA Administration Cefazolin Sodium/Dextrose 2 gm in 50 mls @ 100 mls/hr 12/30/24 06:00 Ancef Duplex IVPB 12/30/24 23:59 PREOP ELENA Tranexamic Acid/Sodium Chloride 1,000 mg in 100 mls @ 600 mls/hr 12/30/24 06:00 IVPB 12/30/24 23:59 PREOP ELENA IV Miscellaneous Supplies 1 each 12/30/24 06:00 Iv Access IV 12/30/24 23:59 DIRECTED ELENA Sodium Chloride 0 ml 12/30/24 06:00 Normal Saline Flush 10 Ml Syr IV 12/30/24 23:59 PRN PRN Sodium Chloride 0 ml 12/30/24 06:00 Normal Saline 10 Ml Vial IJ 12/30/24 23:59 DIRECTED PRN Sterile Water 0 ml 12/30/24 06:00 Water,Injection,Sterile 10 Ml Vial IJ 12/30/24 23:59 DIRECTED PRN PFSH Active Problems Active Problems: Problem Status Onset Code Painful total knee replacement, right Acute T84.84XA, Z96.651 Iliotibial band syndrome affecting right lower leg Acute M76.31 Pes anserinus bursitis of right knee Acute M70.51 Rotator cuff tear arthropathy of right shoulder Acute M75.101, M12.811 Hyperplastic colon polyp Acute K63.5 Serrated adenoma of colon Acute D12.6 Screening for colon cancer Acute Z12.11 Medical History Medical History Traumatic tear of right rotator cuff Thyroid nodule Obesity 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 10/05/22 A1c is 5.6. Surgical History Surgical History History of total right knee replacement (10/18/22) History of colonoscopy (~11/2021) Hx of foot surgery x2 Hammer toe procedure (B) done separately History of total knee arthroplasty (L) Tobacco Smoking/Tobacco Use Status: Former Tobacco Use Alcohol Alcohol Intake: current Alcohol intake frequency: other Substance Use Substance use: Never Substance use type: does not use Details: drinks socially, less than once a month Vital Signs and Lab Results Vital Signs Most Recent Vital Signs in EMR: Most Recent Vital Signs Temp Pulse Resp BP Pulse Ox 36.3 C L 65 16 128/82 99 12/30/24 10:45 12/30/24 10:45 12/30/24 10:45 12/30/24 10:45 12/30/24 10:45 Imaging and Studies Imaging and Studies Study information below may be from another EMR and interpreted by another provider. Please see original notes in EMR for more complete details. Stress Test Summary: Stress ECG Conclusion 1. The patient exercised on the [place] protocol and completed a workload of 7.32 METS, limited by fatigue. There were no symptoms to suggest angina 2. Normal heart rate and blood pressure response to exercise. Patient achieved 98% of predicted heart rate for age 3. Electrocardiographically the test was negative for myocardial ischemia 4. PVCs were noted at end exercise 5. Vinson treadmill score is 6, low probability 09/08/19 Echocardiogram Summary: Conclusion Normal left ventricular wall thickness and chamber size. Estimated ejection fraction is 55 to 60%. There are no segmental wall motion abnormalities. There is stage I diastolic dysfunction There is no chamber enlargement Aortic valve is mildly sclerotic without stenosis. There is trace aortic regurgitation Mitral valve is structurally normal. There is mild mitral regurgitation The pulmonic and tricuspid valves are structurally normal. There is trace physiologic pulmonic and tricuspid regurgitation 09/09/19 Pulmonary Function Summary: Impression Normal pulmonary function study clinical correlation recommended Clinical Correlation therefore is recommended. 09/11/19 Anesthesia Assessment and Plan Anesthesia History Personal History: Other Family History: No Family History of Anesthesia Complications Exercise Tolerance Exercise Tolerance: Metabolic Equivalents>4 Pertinent Negatives Pertinent Negatives: No Symptoms of GERD Cardiac & Pulmonary Exam Cardiac Exam: Normal S1/S2 Heart Sounds Pulmonary Exam: Clear Bilateral Breath Sounds Implantable Cardiac Device Does patient have a Pacemaker or an ICD?: No Airway Exam Known Difficult Airway: No Mallampati Class: 2 Mouth Opening: Normal (> 3cm) Thyromental Distance: Greater than 3 cm Neck Range of Motion: Full ROM Neck Circumference: Thick Teeth Condition: Normal Dentition ASA Classification ASA Score: ASA 2 Emergency Case?: No NPO Status NPO Status: NPO Clears >2 hours, Solids >8 hours Anesthesia Plan Resuscitation Status: Full Code Anesthesia Technique: General Anesthesia Airway Planned: LMA Monitors Used: Standard Monitors
[2024-12-30] MEDS: ceFAZolin 2 GM/50 ML BAG IVPB (12:16)
[2024-12-30] MEDS: TRANEXAMIC ACID/SOD. CHL. 1,000 MG/100 ML BAG 600 MG IVPB (12:26)
[2024-12-30] MEDS: Bupivacaine 0.25% Pres-Free 30 ML VIAL (13:08)
[2024-12-30] MEDS: EPINEPHrine 10 MG/10 ML ML (13:08)
[2024-12-30] MEDS: HYDROmorphone 2 MG/ML SYR IVP ×2 (13:34→13:47)
--- NOTE | 2024-12-30 13:56 | W.PM.OP ---
Operative Note Operative Note PRE-OP DIAGNOSIS: Patella Clunk / Synovitis - Right Knee POST-OP DIAGNOSIS: same PROCEDURE: Arthroscopic Synovectomy of 2 Compartments - RIGHT Knee SURGEON: Cj Stiles ANESTHESIA TYPE: General LMA/ETT Refer to Anesthesia Record ESTIMATED BLOOD LOSS: 0 PATHOLOGY: none sent COMPLICATIONS: None Patient was transported to: PACU Patient's condition: stable Indications: I have seen Denise in clinic for symptoms of pain and crepitus about the lateral/anterolatera aspect of the knee following knee replacement surgery. Nonoperative measures were exhausted but disability due to lack of motion persisted. I discussed knee arthroscopy with synovectomy with the patient. I reviewed the risks of the procedure to include, but not limited to, bleeding, infection, pain, continued stiffness, recurrence, blood clot. Despite these risks, the patient elected to proceed. Findings: There was abundant and thickened soft tissue in the lateral compartment as well as some adhesions superiorly. There is some fraying of this tissue adjacent to the anterior distal aspect of the femur. Procedure Description: Denise was greeted in the preoperative holding area where the correct side was identified and marked. The consent was reviewed with the patient and signed. The history and physical was updated. All questions were answered. She was taken back to the operating room. The patient was placed into the supine position on the operating room table. All bony prominences were well padded. Prophylactic antibiotics in the form of Cefazolin were administered. The right leg was then prepped with Chloraprep and draped in a standard fashion with stockinette and extremity drape. A timeout to confirm correct identity, side and site, procedure, allergies, anesthesia, and medical concerns was performed. A standard lateral portal was made at the lateral border of the patella tendon in line with the inferior pole of the patella, soft spot. The skin and deep tissue was incised sharply and the blunt trochar was inserted atraumatically. At this point had visualization of the femoral component. A superolateral portal was then established with spinal needle localization just superior and lateral to the patella. A knife was taken down through the skin and soft tissue to enter the knee joint. Starting in the superior compartment above the femoral component and anterior to the femur I released all scarring between the anterior femoral synovium and the overlying extensor mechanism. There were a few bands of thickened tissue which were released. Dissection was carried through all of any noticeable scar tissue until the superior patellar pouch was fully released and mobile. This resection was carried out mostly with electrocautery as well as shaver. Once this was released fully from lateral to medial superiorly I then continue working down the lateral gutter. All scar tissue in the lateral gutter was released so there is normal space and movement between the capsular tissues and the edge of the femoral component and femur. In this area there was notable thickened scar tissue and some synovitis which was frayed at the edge of the femoral component. This tissue was taken down through the lateral gutter such that I was able to identify the polyethylene to its posterior corner. Once again, all scar tissue in this area was resected so the polyethylene was easily visible and there is no interposed tissue in the back or the polyethylene was identified. I then worked anteriorly and released any soft tissue interposed anteriorly where there was a large amount of soft tissue distal to the patella which was engaging with the anterior femur. There is no interposed soft tissue. There was no significant synovitis seen medially. Any remnant scar tissue from around the patella was then removed with a shaver and electrocautery. I also utilized the shaver to remove excess bone from the lateral edge of patella extending lateral to the patella. The arthroscope was brought back into the suprapatellar pouch and the leg was in full extension. The knee was thoroughly irrigated with the arthroscopic fluid on high flow and pressure. Inflow was stopped and excess fluid was removed. The wounds were closed with 4-0 Nylon. 0.25% ropivacaine was injected around the portal sites and into the knee. The wounds were dressed with Xeroform, 4x4 gauze, ABD pad, Kerlix and an KEMI wrap. A cryo-cuff was applied. The patient tolerated the procedure well and was returned to the PACU in a stable condition suffering no known complication.. Date of Procedure: 12/30/24
[2024-12-30] MEDS: HYDROcodone 5/Acetaminophen 325 TAB PO (14:36)
--- NOTE | 2024-12-30 14:52 | W.ANESPOSTOP ---
Postoperative Evaluation Date, Time and Location Date Performed: 12/30/24 Time Performed: 14:52 Patient Location: Day Surgery Unit Vital Signs Most Recent Imported Vital Signs: Most Recent Vital Signs Temp Pulse Resp BP Pulse Ox 36.0 C L 89 14 110/82 97 12/30/24 14:07 12/30/24 14:07 12/30/24 14:07 12/30/24 14:07 12/30/24 14:07 Pain Score Most Recent Pain Score: Most Recent Pain Score Pain Level 3 12/30/24 14:07 Assessment Mental Status: Awake (Alert & Oriented to Patient Baseline) Airway and Respiratory Function: Patent airway with normal (patient baseline) respiratory exam Cardiovascular Function: Hemodynamically Stable Hydration Status: Adequately Hydrated Nausea & Vomiting: No Nausea or Vomiting Pain: Pain is tolerable per patient Peripheral Nerve Block: Patient did not receive a nerve block
== END 2024-12-30 15:37 | disposition home or self-care (01) ==
PROVIDERS: PCP Family Medicine; Visit Provider Student in an Organized Health Care Education/Training Program
PROC: (CPT 29870; principal; 2024-12-30 12:30)
DX: M25.861 Other specified joint disorders, right knee (principal); T84.84XA Pain due to internal orthopedic prosthetic devices, implants and grafts, initial encounter; Z96.651 Presence of right artificial knee joint; M76.31 Iliotibial band syndrome, right leg
CPT/HCPCS: 29876; J0665; J0690; J1100; J1171; J1885; J2250; J2371; J2405; J2704

== ENCOUNTER 2025-01-20 02:07 | Outpatient (CLI) | payer OTHER, SELFPAY ==
--- NOTE | 2025-01-20 | DI.RAD_ITS ---
Exam(s) XR TIB/FIB LT EXAM: XR TIB/FIB LT CLINICAL HISTORY: MULTPILE SKIN NODULES, LOCALIZED SWELLING, MASS AND LUMP, R22.9. TECHNIQUE: 2D digital imaging was performed. Two views. COMPARISON: CR XR KNEE LT 3V AP,LAT,BAO from 11/01/2020 CR XR KNEE RT 1V from 06/01/2022 CR XR STANDING ALIGNMENT from 06/01/2022 CR XR STANDING ALIGNMENT from 11/02/2022 CR XR KNEE RT 3V AP,LAT,BAO from 04/10/2024 FINDINGS: BONES: No acute fracture is present. There is a knee prosthesis in place. Cortical thickening is again noted around the lateral aspect of the tibial stem which appears similar to the previous exam. The patella appears to be low lying. This also appears unchanged compared to 2020. No bony destructive lesion is seen. SOFT TISSUE: Benign appearing small rounded calcifications in the anterior and lateral subcutaneous fat. IMPRESSION: Stable appearance of left knee prosthesis cortical thickening around the tibial stem. The patella is low lying. DATA REPOSITORY: RADIATION DOSE DELIVERED:
== END 2025-01-20 02:27 ==
LOC: DI 02:07
PROVIDERS: PCP Family Medicine; Visit Provider Physician Assistant
DX: Z96.642 Presence of left artificial hip joint (principal); Z98.890 Other specified postprocedural states
CPT/HCPCS: 73590